=== PATIENT | male | born 1935 | race Caucasian/White ===

== ENCOUNTER 2018-06-11 07:56 | Emergency (ER) | payer MEDICARE, BC ==
--- NOTE | 2018-06-11 10:11 | ED ---
GI/ HPI - HPI Summary HPI Summary: This patient is an 83 year old M presenting to [facility] accompanied by Leslie with a chief complaint of constipation since several days ago, denying any BMs in that time. Pt endorses straining in attempts to pass, and denies sx similar to this level of severity in past, denies abd pain, vomiting, fever, recent surgery. Pt took painkillers 6 weeks ago s/p hand surgery. Pt has tried exlax, miralax, prune juice (yesterday), fruit, enema, with no alleviation of sx. - History of Current Complaint Chief Complaint: EDGeneral Time Seen by Provider: 06/11/18 08:11 Stated Complaint: CONSTIPATION Hx Obtained From: Patient Onset/Duration: Started Days Ago Timing: Constant Severity: Moderate Current Severity: Moderate Pain Intensity: 0 Location of Pain: None Associated Signs and Symptoms: Positive: Constipation. Negative: Hematemesis, Nausea, Vomiting, Diarrhea, Abdominal Pain Aggravating Factor(s): Nothing Alleviating Factor(s): Nothing - Allergy/Home Medications Allergies/Adverse Reactions: Allergies Allergy/AdvReac Type Severity Reaction Status Date / Time No Known Allergies Allergy Verified 06/11/18 08:04 Home Medications: Home Medications Allopurinol TAB* [Zyloprim 100 MG TAB*] 200 mg PO DAILY 06/11/18 [History Confirmed 06/11/18] Ascorbic Acid TAB* [Vitamin C TAB*] 500 mg PO DAILY 06/11/18 [History Confirmed 06/11/18] Bisacodyl EC TAB* [Dulcolax EC TAB*] 5 mg PO DAILY PRN 06/11/18 [History Confirmed 06/11/18] Indomethacin CAP* [Indocin CAP*] 25 mg PO QID PRN 06/11/18 [History Confirmed ] L.acidoph,Paracasei, B.lactis [Probiotic] 1 each PO DAILY 06/11/18 [History Confirmed 06/11/18] Multivitamins/Minerals TAB* [Theragran/minerals TAB*] 1 tab PO DAILY 06/11/18 [ History Confirmed 06/11/18] Ranitidine TAB (NF) [Zantac TAB (NF)] 150 mg PO BID 06/11/18 [History Confirmed 06/11/18] guaiFENesin ER TAB [Mucinex*] 600 mg PO BID PRN 06/11/18 [History Confirmed 10/19] PMH/Surg Hx/FS Hx/Imm Hx GI History: Reports: Other GI Disorders - constipation, impaction Sensory History: Reports: Hx Contacts or Glasses Opthamlomology History: Reports: Hx Contacts or Glasses EENT History: Denies: Hx Deafness Infectious Disease History: No Infectious Disease History: Denies: Traveled Outside the [place] in Last 30 Days - Social History Occupation: Retired Lives: With Family - Alcohol Use: Rare Substance Use Type: Reports: None Smoking Status (MU): Never Smoked Tobacco Review of Systems Negative: Fever, Chills Negative: Erythema Negative: Sore Throat Negative: Chest Pain Negative: Shortness Of Breath, Cough Positive: Other - Constipation. Negative: Abdominal Pain, Vomiting, Nausea Negative: dysuria, hematuria Negative: Myalgia, Edema Negative: Rash Neurological: Other - NEGATIVE: dizziness All Other Systems Reviewed And Are Negative: Yes Physical Exam - Summary Physical Exam Summary: Constitutional: Well-developed, Well-nourished, Alert. (-) Distressed Skin: Warm, Dry HENT: Normocephalic; Atraumatic Eyes: Conjunctiva normal Neck: Musculoskeletal ROM normal neck. (-) JVD, (-) Stridor, (-) Tracheal deviation Cardio: Rhythm regular, rate normal, Heart sounds normal; Intact distal pulses; The pedal pulses are 2+ and symmetric. Radial pulses are 2+ and symmetric. (-) Murmur Pulmonary/Chest wall: Effort normal. (-) Respiratory distress, (-) Wheezes, (-) Rales Abd: Soft, (-), epigastric tenderness, (-) Distension, (-) Guarding, (-) Rebound Musculoskeletal: (-) Edema Lymph: (-) Cervical adenopathy Neuro: Alert, Oriented x3 Psych: Mood and affect Normal Rectal: fecal impaction present Triage Information Reviewed: Yes Vital Signs On Initial Exam: Initial Vitals Temp Pulse Resp BP Pulse Ox 97.9 F 76 16 154/79 96 06/11/18 08:01 06/11/18 08:01 06/11/18 08:01 06/11/18 08:01 06/11/18 08:01 Vital Signs Reviewed: Yes Diagnostics - Vital Signs Vital Signs Temp Pulse Resp BP Pulse Ox 06/11/18 08:01 97.9 F 76 16 154/79 96 - Laboratory Lab Statement: Any lab studies that have been ordered have been reviewed, and results considered in the medical decision making process. GIGU Course/Dx - Course Course Of Treatment: Fecal disimpaction. - Diagnoses Provider Diagnoses: Fecal impaction, Constipation Discharge - Sign-Out/Discharge Documenting (check all that apply): Patient Departure - discharge - Discharge Plan Condition: Stable Disposition: HOME Patient Education Materials: Fecal Impaction (ED), Constipation (ED) Referrals: Kristian Woods MD [Primary Care Provider] - Additional Instructions: Can take over the counter laxitives and increase fluid intake, if taking prune juice should use a full cup. Can also resume using an enema today. RETURN TO EMERGENCY DEPARTMENT FOR ANY NEW OR CHANGING SYMPTOMS. - Billing Disposition and Condition Condition: STABLE Disposition: Home Procedure Note GI/ - Disimpaction Manual Disimpation: Yes Impaction Removed: Yes
[2018-06-11 12:09] VITALS: BP 160/88
== END 2018-06-11 12:03 | disposition home or self-care (01) ==
LOC: ED 07:56
DX: K56.41 Fecal impaction (principal)
CPT/HCPCS: 96360; 99282; 99284

== ENCOUNTER 2019-05-14 07:54 | Emergency (ER) | payer MEDICARE, BC ==
[2019-05-14 09:25] VITALS: BP 169/76
--- NOTE | 2019-05-14 11:09 | ED ---
Abdominal Pain/Male - HPI Summary HPI Summary: Patient is an 83-year-old male who presents emergency department for constipation times one week. Patient states he is a history of chronic constipation and has been taking Dulcolax tablets. Patient states that about a week since he has had a normal bowel movement. He does note having a small bowel movement yesterday after using a suppository. Patient denies abdominal pain, vomiting, fever, chest pain, shortness of breath. Denies hx of bowel obstructions. Symptoms are mild in severity. No current modifying factors. Patient states he was cleared by GI and does not any further colonoscopies. Pt. notes he was seen in ER about a year ago and was disimpacted. - History of Current Complaint Chief Complaint: EDConstipation Stated Complaint: "CONSTIPATION" PER PT Time Seen by Provider: 05/14/19 08:06 Hx Obtained From: Patient Pain Intensity: 0 Pain Scale Used: 0-10 Numeric - Allergies/Home Medications Allergies/Adverse Reactions: Allergies Allergy/AdvReac Type Severity Reaction Status Date / Time No Known Allergies Allergy Verified 05/14/19 07:59 PMH/Surg Hx/FS Hx/Imm Hx Previously Healthy: Yes GI History: Reports: Other GI Disorders - constipation, impaction Sensory History: Reports: Hx Contacts or Glasses Denies: Hx Deafness Opthamlomology History: Reports: Hx Contacts or Glasses Infectious Disease History: No Infectious Disease History: Denies: Traveled Outside the [place] in Last 30 Days - Family History Known Family History: Positive: Non-Contributory - Social History Occupation: Retired Lives: With Family Alcohol Use: Rare Substance Use Type: Reports: None Smoking Status (MU): Former Smoker Review of Systems Constitutional: Negative Negative: Fever, Chills Cardiovascular: Negative Respiratory: Negative Positive: Other - constipation. Negative: Abdominal Pain, Vomiting, Diarrhea All Other Systems Reviewed And Are Negative: Yes Physical Exam Triage Information Reviewed: Yes Vital Signs On Initial Exam: Initial Vitals Temp Pulse Resp BP Pulse Ox 98.3 F 73 18 179/72 98 05/14/19 07:56 05/14/19 07:56 05/14/19 07:56 05/14/19 07:56 05/14/19 07:56 Vital Signs Reviewed: Yes Appearance: Positive: Well-Appearing - Pt. sitting on bed in NAD. present. Skin: Positive: Warm, Dry Head/Face: Positive: Normal Head/Face Inspection Eyes: Positive: Normal, EOMI, YAIR Neck: Positive: Nontender Respiratory/Lung Sounds: Positive: Clear to Auscultation, Breath Sounds Present Cardiovascular: Positive: Normal, RRR Abdomen Description: Positive: Other: - Abd. is soft and nontender throughout. Musculoskeletal: Positive: Normal, Strength/ROM Intact Neurological: Positive: Normal, CN Intact II-III Psychiatric: Positive: Affect/Mood Appropriate Diagnostics - Vital Signs Vital Signs Temp Pulse Resp BP Pulse Ox 05/14/19 09:24 98.2 F 69 16 169/76 97 05/14/19 07:56 98.3 F 73 18 179/72 98 - Laboratory Lab Statement: Any lab studies that have been ordered have been reviewed, and results considered in the medical decision making process. Abdominal Pain Male Course/Dx - Course Course Of Treatment: Patient presenting complaining of constipation. His afebrile with stable vital signs. Patient has benign abdominal exam. X-ray was ordered for further evaluation and rule out obstruction. Before x-ray was performed patient went to the restroom and had a large movement. Patient states he is feeling much better now. Abdomen is soft and nontender. X-ray canceled. Patient comfortable with DC home. Follow-up with PCP and return to the ER symptoms change or worsen. Patient and understand and agree with plan. - Diagnoses Differential Diagnosis/HQI/PQRI: Bowel Obstruction, Constipation Provider Diagnoses: Constipation Discharge - Sign-Out/Discharge Documenting (check all that apply): Patient Departure Patient Received Moderate/Deep Sedation with Procedure: No - Discharge Plan Condition: Improved Disposition: HOME Patient Education Materials: Constipation (ED), High Fiber Diet (ED) Referrals: Kristian Woods MD [Primary Care Provider] - Additional Instructions: Follow up with PCP Increase fluids and fiber in diet Avoid dairy products Can try over the counter probiotic Can continue stool softeners and laxatives as needed Return to ER if symptoms change or worsen - Billing Disposition and Condition Condition: IMPROVED Disposition: Home - Attestation Statements Provider Attestation: pt seen by midlevel provider independently, based on their assessment, it was not necessary to present the case to me but I was available for consultation. I did not form a physician-patient relationship with the patient. The chart however, has been reviewed.
== END 2019-05-14 09:24 | disposition home or self-care (01) ==
LOC: ED 07:54
DX: K59.00 Constipation, unspecified (principal); Z87.891 Personal history of nicotine dependence
CPT/HCPCS: 99282

== ENCOUNTER 2019-09-24 18:24 | Inpatient (IN) | payer MEDICARE, BC ==
--- NOTE | 2019-09-24 18:52 | ED ---
Lower Extremity - HPI Summary HPI Summary: This pt is an 84 y/o male presenting to [facility] c/o right lower extremity swelling and redness. Pt reports he had a blocked sweat gland removed by Dr. Maher, aluminum molding machine operator, about [address] Maher placed patient on Keflex on because the wound was draining. Per , wound has been draining a bit but nothing more than usual today. Today noticed pt's right lower extremity was red and swollen. Pt denies any right lower extremity pain. Pt notes he has numbness from neuropathy and this is unchanged today. Denies fever , chills, nausea, vomiting. Pt called his aluminum molding machine operator and was advised to come to the ED. Pt denies any PMHx. reports pt had flu shots a few days ago and the next day pt had chills. Pt denies chills since then. Medications reviewed. Allergies noted. - History of Current Complaint Chief Complaint: EDRashSkinAbscess Stated Complaint: RIGHT FOOT INFECTION PER PT Time Seen by Provider: 09/24/19 18:34 Hx Obtained From: Patient Onset of Pain: Days Onset/Duration: Days Severity Currently: None Pain Intensity: 0 Pain Scale Used: 0-10 Numeric Timing: Lasting Days Location: Is Discrete @ - right lower extremity Associated Signs And Symptoms: Positive: Swelling, Redness. Negative: Fever Aggravating Factor(s): Nothing Alleviating Factor(s): Nothing Able to Bear Weight: Yes - Allergies/Home Medications Allergies/Adverse Reactions: Allergies Allergy/AdvReac Type Severity Reaction Status Date / Time No Known Allergies Allergy Verified 09/24/19 18:28 Home Medications: Home Medications Cephalexin CAP* [Keflex CAP*] 500 mg PO QID 09/24/19 [History Confirmed 09/24/19 ] Pantoprazole TAB * [Protonix TAB*] 40 mg PO DAILY 09/24/19 [History Confirmed ] PMH/Surg Hx/FS Hx/Imm Hx Endocrine/Hematology History: Denies: Hx Diabetes GI History: Reports: Other GI Disorders - constipation, impaction Sensory History: Reports: Hx Contacts or Glasses Denies: Hx Deafness Opthamlomology History: Reports: Hx Contacts or Glasses Infectious Disease History: No Infectious Disease History: Denies: Traveled Outside the [place] in Last 30 Days - Family History Family History: Brothers with prostate CA. - Social History Alcohol Use: Rare Substance Use Type: Reports: None Smoking Status (MU): Former Smoker Review of Systems Negative: Fever, Chills Negative: Vomiting, Nausea Skin: Other - POSITIVE: right lower extremity swelling and redness All Other Systems Reviewed And Are Negative: Yes Physical Exam - Summary Physical Exam Summary: Constitutional: Well-developed, Well-nourished, Alert. (-) Distressed Skin: Warm, Dry HENT: Normocephalic; Atraumatic Eyes: Conjunctiva normal Neck: Musculoskeletal ROM normal neck. (-) JVD, (-) Stridor, (-) Tracheal deviation Cardio: Rhythm regular, rate normal, Heart sounds normal; Intact distal pulses; The pedal pulses are 2+ and symmetric. Radial pulses are 2+ and symmetric. (-) Murmur Pulmonary/Chest wall: Effort normal. (-) Respiratory distress, (-) Wheezes, (-) Rales Abd: Soft, (-) tenderness, (-) Distension, (-) Guarding, (-) Rebound Musculoskeletal: Right lower extremity is swollen with 1+ pitting edema. The dorsal aspect of the foot with erythema, not warm or tender. Healing wound on plantar aspect of foot with no purulence expressed. Lymph: (-) Cervical adenopathy Neuro: Alert, Oriented x3 Psych: Mood and affect Normal Triage Information Reviewed: Yes Vital Signs On Initial Exam: Initial Vitals Temp Pulse Resp BP Pulse Ox 98.5 F 76 20 197/105 99 09/24/19 18:26 09/24/19 18:26 09/24/19 18:26 09/24/19 18:26 09/24/19 18:26 Vital Signs Reviewed: Yes Procedures - Sedation Patient Received Moderate/Deep Sedation with Procedure: No Diagnostics - Vital Signs Vital Signs Temp Pulse Resp BP Pulse Ox 09/24/19 18:26 98.5 F 76 20 197/105 99 - Laboratory Result Diagrams: 09/25/19 06:13 09/25/19 06:14 Lab Statement: Any lab studies that have been ordered have been reviewed, and results considered in the medical decision making process. - Radiology Right foot XR Radiology Interpretation Completed By: ED Physician Summary of Radiographic Findings: Soft tissue swelling with no obvious bony destruction. - Ultrasound No standard instances Ultrasound Interpretation Completed By: Radiologist Summary of Ultrasound Findings: US of right lower extremity IMPRESSION: No evidence of right lower extremity DVT. Dr. Rutherford has reviewed this report. Lower Extremity Course/Dx - Course Course Of Treatment: Patient is here with worsening infection and swelling of his right lower extremity. Patient underwent a surgery by a aluminum molding machine operator roughly 4 weeks ago. Patient started having purulent discharge from his wound on Saturday and was started on Keflex. Yesterday, patient's leg became swollen. Patient does have erythema on his foot but is nontender and blanching. I do not believe this represents cellulitis. Patient had a negative ultrasound of his right lower extremity. Patient was admitted for possible osteomyelitis - Diagnoses Provider Diagnoses: Swelling of right lower extremity, Osteomyelitis - Physician Notifications Discussed Care Of Patient With: Rubén Jang - hospitalist Time Discussed With Above Provider: 21:50 Instructed by Provider To: Admit As Inpatient Discharge ED - Sign-Out/Discharge Documenting (check all that apply): Patient Departure - Admit to [facility] - Discharge Plan Condition: Stable Disposition: ADMITTED TO [facility] - Billing Disposition and Condition Condition: STABLE Disposition: Admitted to [facility] - Attestation Statements Document Initiated by Roseibe: Yes Documenting Scribe: Tiera Kirby Provider For Whom Scribe is Documenting (Include Credential): Joey Rutherford MD Scribe Attestation: Tiera Hurd, scribed for Joey Rutherford MD on 09/25/19 at 1010. Scribe Documentation Reviewed: Yes Provider Attestation: The documentation as recorded by the Tiera desai accurately reflects the service I personally performed and the decisions made by me, Joey Rutherford MD Status of Scribe Document: Viewed
--- OUTSIDE RECORDS SUMMARY | 2019-09-24 19:13 | XMS REPORT | Summary of Care ---
:1935 Author Organization [facility] Address 1 [facility] [place] [address] Care Team Providers Name Role Phone Kristian Woods Primary Care Provider Reason for Visit Reason Comments Follow Up RTH Encounter Details Date Type Department Care Team Description 09/18/2019 Office Visit [facility] - Hollis King, H/O total hip Chantelle CALIXTO arthroplasty, right [address] 1 [facility] (Primary Dx) [address] [place] [address] [place] [address] Allergies Active Allergy Reactions Severity Noted Date Comments Dust Mites Respiratory Reaction 01/06/2009 documented as of this encounter (statuses as of 09/18/2019) Medications Medication Sig Dispensed Refills Start Date End Date Status metroNIDAZOLE 1 Each by Topical 45 g 2 06/19/2018 Active (METROCREAM) 0.75 % route TWICE Apply externally DAILY. Apply CreamIndications: twice daily to Rosacea face. Additional information Patient taking differently: 1 Each Topical DAILY, Apply twice daily to face. , Reported on 07/23/2019 9:20 AM Multiple Vitamins-Minerals Take 1 Tab by mouth 0 06/11/2018 Active (MULTIVITAMIN ADULT PO) DAILY. ascorbic acid (VITAMIN C) 500 MG Take 500 mg by mouth 0 06/11/2018 Active Oral Tab DAILY. sennosides-docusate sodium Take 1 Tab by mouth TWO 30 Tab 0 08/18/2018 Active (SENOKOT-S, SENNA S) 8.6-50 MG TIMES DAILY NEEDED Oral Tab (constipation). Amoxicillin 500 MG Oral Tab Take 4 Tabs by mouth 4 Tab 4 10/30/2018 Active NEEDED (Please take four tablets one hour prior to dental work.). pantoprazole (PROTONIX) 40 MG Take 1 Tab by mouth 90 Tab 3 12/25/2018 Active Oral Tab ECIndications: DAILY. Gastroesophageal reflux disease without esophagitis allopurinol (ZYLOPRIM) 100 MG Take by mouth DAILY. 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 chronic kidney disease 07/25/2018 Primary osteoarthritis of right hip 07/08/2018 Overview: Added automatically from request for surgery [id number] Pre-diabetes 04/01/2018 Subclinical hypothyroidism 04/01/2018 Pseudophakia of right eye 03/06/2018 Combined forms of age-related cataract of left eye 03/06/2018 CMC arthritis 02/26/2018 Overview: Added automatically from request for surgery [id number] Peripheral polyneuropathy 11/15/2017 Low back pain 05/22/2017 Status post total replacement of left hip 05/17/2017 Gastroesophageal reflux disease without esophagitis 10/12/2015 S/P total hip arthroplasty 06/02/2015 Osteoarthrosis, unspecified whether generalized or localized, pelvic 2014 region and thigh Status post total right knee replacement 03/11/2014 Overview: LTKA 3-24-14 Osteoarthritis of left knee 02/05/2014 Acute pain of right knee 12/24/2013 History of total shoulder replacement 02/04/2013 Overview: Left 1.22.13 Dr Ramsay Shoulder arthritis 11/04/2012 BMI 28.0-28.9,adult 2011 Sensorineural hearing loss, bilateral 12/31/2008 Prostate cancer 10/01/2008 Overview: S/p radical prostatectomy [facility] 2004. Mixed hyperlipidemia 01/23/2008 Overview: TC 239 2004 TC 210 2008 DJD (degenerative joint disease) 01/23/2008 Overview: S/p right total knee replacement 2001 Personal history of colonic polyps 01/23/2008 Overview: Colonoscopy 2003-hyperplastic polyp. Colonoscopy negative 10/10 Gouty arthritis of toe 01/23/2008 Overview: Right 1st MTP joint attacks Last attack 2007. Essential hypertension 01/23/2008 Surgery, elective 12/02/2003 Overview: Dr Silva documented as of this encounter (statuses as of 09/18/2019) Resolved Problems Problem Noted Date Resolved Date Seasonal allergies 01/23/2008 09/09/2009 documented as of this encounter (statuses as of 09/18/2019) Immunizations Name Administration Dates Next Due Celestone Soluspan(12mg) 04/05/2011 Depo Medrol (80mg) 03/03/2015 Influenza (IM) Preservative Free 09/17/2018, 10/24/2017, 09/24/2016, 09/11/2012, 09/14/2009, 09/16/2008 Influenza Vaccine High Dose 09/01/2018, 10/01/2015 Influenza Vaccine Whole 09/10/2007, 09/28/2004 PNEUMOCOCCAL POLYSACCHARIDE VACCINE 11/12/2002, 11/12/2002 Pneumococcal Conjugate(13 Valent) 01/24/2015 TDAP Vaccine 10/04/2009 ZOSTER (ZOSTAVAX) VACCINE 12/24/2014 documented as of this encounter Social History Tobacco Use Types Packs/Day Years Used Date Former Smoker Cigarettes 3 12 Quit: 12/02/1967 Smokeless Tobacco: Never Used Alcohol Use Drinks/Week oz/Week Comments Yes 1-2 Standard drinks or equivalent 1.0 - 2.0 rare Sex Assigned at Date Recorded Not on file Job Start Date Occupation Industry Not on file Not on file Not on file Travel History Travel Start Travel End No recent travel history available. documented as of this encounter Last Filed Vital Signs Vital Sign Reading Time Taken Comments Blood Pressure - - Pulse - - Temperature - - Respiratory Rate 16 09/18/2019 9:42 AM EDT Oxygen Saturation - - Inhaled Oxygen Concentration - - Weight 93 kg (205 lb) 09/18/2019 9:42 AM EDT Height 182.9 cm (6') 09/18/2019 9:42 AM EDT Body Mass Index 27.8 09/18/2019 9:42 AM EDT documented in this encounter Progress Notes Hollis King MD - 09/18/2019 9:45 AM EDT PATIENT: Jono Trinidad : 1935 DATE OF SERVICE: 09/18/2019 SUBJECTIVE: Jono Trinidad is a 84-y.o. male. 1 year status post right total hip arthroplasty. Doing well, no acute issues OBJECTIVE: Resp 16 | Ht 6' (1.829 m) | Wt 205 lb (93 kg) | BMI 27.80 kg/m Incision well healed. No peritroch tenderness. Range of motion Flexion 0-90, ir -20, er-30, abd-40, add-15. Limb lengths grossly equal. Trendelenburg negative. Distal ext neuro intact. X-rays show well aligned cementless total hip arthroplasty , no evidence of loosening ASSESSMENT: ICD-9-CM ICD-10-CM 1. H/O total hip arthroplasty, right V43.64 Z96.641 XR HIP 3 VIEWS UNILAT W/ PELVIS RIGHT PLAN: Activity as tolerated Follow up in 1 year with xrays Author: Hollis King MD 09/18/2019 09:49 Portions of this note were made with voice recognition software documented in this encounter Plan of Treatment Date Type Specialty Care Team Description 09/24/2019 Lab Internal Medicine 10/01/2019 Office Visit Internal Medicine Kristian Woods MD [address] [place] [id number] [phone] 12/16/2019 Office Visit Orthopedics Manuel Ramsay MD [address] [place] [address] 01/01/2020 Office Visit Orthopedics Hollis King MD [address] [place] [address] [phone] 09/23/2020 Office Visit Orthopedics Hollis King MD [address] [place] [address] Name Type Priority Associated Diagnoses Date/Time XR HIP 3 VIEWS UNILAT Imaging Routine H/O total hip 09/18/2019 9:40 AM EDT W/PELVIS RIGHT arthroplasty, right Name Type Priority Associated Diagnoses Order Schedule XR HIP 3 VIEWS UNILAT Imaging Routine H/O total hip Expected: 09/17/2019, W/PELVIS RIGHT arthroplasty, right Expires: 09/17/2020 Health Maintenance Due Date Last Done Comments DEPRESSION SCREENING 1948 HIV SCREENING 1951 ZOSTER IMMUNIZATION SERIES 02/18/2015 12/24/2014 (2 of 3) MEDICARE ANNUAL WELLNESS 02/06/2018 02/06/2017, 02/06/2017, VISIT 12/29/2015, Additional history exists INFLUENZA VACCINE (#1) 2019 09/17/2018, 09/01/2018, 10/24/2017, Additional history exists DIABETES SCREENING 08/18/2019 08/18/2018, 08/17/2018, 08/16/2018, Additional history exists FALL RISK ASSESSMENT 12/22/2019 12/22/2018, 12/22/2018 PNEUMOCOCCAL 65+YRS Completed 01/24/2015, 11/12/2002 HPV IMMUNIZATION SERIES Aged Out No longer eligible based on patient's age to complete this topic MENINGOCOCCAL VACCINE IMM Aged Out No longer eligible based on patient's age to complete this topic documented as of this encounter Goals Goal Patient Goal Associated Recent Patient-Stated? Author Type Problems Progress Blood Pressure Blood Pressure 142/78 No Chuck, < 150/90 (07/23/2019 Kristian Walker, 9:14 AM EDT) Note: This is an individualized treatment (blood pressure) goal for Jono Trinidad: Displayed above (on the left) is your goal for blood pressure control. Your most recent blood pressure is also shown above, on the right. You should try to achieve blood pressures that are lower than your goal listed above (on the left). Take all prescribed medications as Self-management Kristian Perez MD directed Note: This is an individualized self-management goal for Jono Trinidad: Please take all prescribed medications as directed. 1. Do not skip doses. If you cannot afford your medications, talk with your doctor. 2. Use a pill reminder system such as a pill box if needed. Your pharmacist can help you with this. 3. Contact your Pharmacy 5 days before your medication runs out. If you cannot take your medications for any reasons, talk with your doctor. 4. Please bring all of your medication bottles and inhalers (or a list of all your medications/inhalers) with you to every visit. Potential barriers to meeting all of your care plan goals will continue to be addressed on an ongoing basis. documented as of this encounter Implants Implanted Type Area Activities Assistant Device Shelf Model / Identifier Expiration Serial / Lot Date Bone Cement, 40gm Full Dose - [id number] Left: DEPUY [id number] / Implanted: Qty: 1 on 12/23/2012 at [facility] Shoulder / [id number] Glenoid, Crosslink [place] Pg 52 - [id number] Left: DEPUY [id number] / Implanted: Qty: 1 on 12/23/2012 at [facility] Shoulder / [id number] Stem, Global Advantage 12mm - [id number] Left: DEPUY [id number] / Implanted: Qty: 1 on 12/23/2012 at [facility] Shoulder / [id number] Smart Set Bone Cement W/ Gentimy - [id number] Left: Knee DEPUY 2014 [id number] / Implanted: Qty: 1 on 02/22/2014 by Hollis King MD at [facility] / [id number] Smart Set Cement - [id number] Left: Knee DEPUY 03/01/2015 [id number] / Implanted: Qty: 1 on 02/22/2014 by Hollis King MD at [facility] / [id number] Lps-Flex Option Femoral G Left - [id number] Left: Knee OMID KAORN / Implanted: Qty: 1 on 02/22/2014 by Hollis King MD at [facility] ASSOC / [id number] Tibial Plate Size 7 - [id number] Left: Knee OMID KARON 10/01/2023 / Implanted: Qty: 1 on 02/22/2014 by Hollis King MD at [facility] / [id number] Patella, 38mm Nexgen - [id number] Left: Knee OMID KARON 03/31/2021 / Implanted: Qty: 1 on 02/22/2014 by Hollis King MD at [facility] / [id number] Art Surface 10mm Blue - [id number] Left: Knee OMID KARON 01/29/2021 / Implanted: Qty: 1 on 02/22/2014 by Hollis King MD at [facility] / [id number] Regenerex/Ringloc Ltd Hole Cup Size 58 - [id number] Left: Hip BIOMET 12/2024 [id number] / Implanted: Qty: 1 on 05/09/2015 by Hollis King MD at [facility] / [id number] Neutral Arcomxl Liner - 36g - [id number] Left: Hip BIOMET 08/02/2019 [id number] / Implanted: Qty: 1 on 05/09/2015 by Hollis King MD at [facility] / [id number] Taperloc Complete Fem Stem - So Sz 15 - [id number] Left: Hip BIOMET 09/01 [id number] / Implanted: Qty: 1 on 05/09/2015 by Hollis King MD at [facility] / [id number] 36mm Femoral Head Size Std - [id number] Left: Hip BIOMET 01/31/2025 11- [id number] / Implanted: Qty: 1 on 05/09/2015 by Hollis King MD at [facility] / [id number] Iol, S168ulx 21.0 Diopter - [id number] Right: Eye STORZ I842VIT-68.0D / Implanted: Qty: 1 on 03/05/2018 by Rodriguez Kumar MD at [facility] [id number] / Iol, D518xmg 20.5 Diopter - [id number] Left: Eye STORZ H682HTO-72.5D / Implanted: Qty: 1 on 03/26/2018 by Rodriguez Kumra MD at [facility] [id number] / Micro Corkscrew Ti [place] - [id number] Right: Hand ARTHREX 10/01/2022 AR [id number] / Implanted: Qty: 1 on 05/02/2018 by Marina Velez MD at [facility] / [id number] Regenerex/Ringloc Ltd Hole Cup Size 60 - [id number] Right: Hip OMID USA[employer] INC 06/16/2028 [id number] / Implanted: Qty: 1 on 08/11/2018 by Hollis King MD at [facility] / [id number] Acetabular Liner Neutral Right: Hip BIOMET 06/01/2023 [id number] / Implanted: Qty: 1 on 08/11/2018 by Hollis King MD at [facility] / [id number] Taperloc Complete Fem Stem - So Sz 13 - [id number] Right: Hip OMID [employer] 12/20/2027 [id number] / Implanted: Qty: 1 on 08/11/2018 by Hollis King MD at [facility] / [id number] Ceramic Modular Head 36 +3 - [id number] Right: Hip OMID [employer] 01/29 [id number] / Implanted: Qty: 1 on 08/11/2018 by Hollis King MD at [facility] / [id number] documented as of this encounter Results Not on filedocumented in this encounter Visit Diagnoses Diagnosis H/O total hip arthroplasty, right - Primary documented in this encounter documented as of this encounter Advance Directives Type Date Recorded Patient Extras Casting Director Explanation Advance Directives 12/30/2012 9:27 AM Health Care Proxy"
[2019-09-24 19:19] LABS: ABS Eosinophils 0.3 10^3/ul (0-0.6); ABS Lymphocytes 0.7 10^3/ul (1.0-4.8); ABS Monocytes 0.9 10^3/ul (0-0.8); ABS Neutrophils 4.8 10^3/ul (1.5-7.7); Eosinophil % 4.1 %; Hematocrit 31 % (42-52); Hemoglobin 10.9 g/dL (14.0-18.0); Lymphocyte % 11.1 %; Mean Corpuscular HGB Conc 35 g/dL (31-36); Mean Corpuscular Hemoglobin 33 pg (27-31); Mean Corpuscular Volume 95 fL (80-94); Mean Platelet Volume 7.2 fL (7.4-10.4); Platelet Count 193 10^3/uL (150-450); Red Blood Count 3.31 10^6 /uL (4.18-5.48); Red Cell Distribution Width 13 % (10-15); White Blood Count 6.7 10^3/uL (3.5-10.8)
[2019-09-24 19:37] LABS: Albumin 3.7 g/dL (3.2-5.2); Albumin/Globulin Ratio 1.2 (1-3); BUN/Creatinine Ratio 17.6 (8-20); C Reactive Protein 111.1 mg/L (<8.01); Calcium 8.5 mg/dL (8.6-10.3); EGFR African American 40.4 (>60); EGFR Non-African American 33.4 (>60); Potassium 4.1 mmol/L (3.5-5.0); Total Bilirubin 0.5 mg/dL (0.2-1.0); Total Protein 6.7 g/dL (6.4-8.9)
[2019-09-24 22:24] LABS: Erythrocyte Sed Rate 74 mm/Hr (0-19)
[2019-09-25] MEDS ORDERED: Vancomycin(*) 1,000 MG in NS 0.9% 250 ML* 250 ML IVPB ONE (00:27)
[2019-09-25] MEDS ORDERED: Piperacillin/Tazobac ADVAN(*) 3.375 GM in NS 0.9% 100 ML* 100 ML IVPB ONE (00:28)
[2019-09-25] MEDS ORDERED: Bisacodyl EC TAB* 5 MG PO PRN (00:59)
[2019-09-25] MEDS ORDERED: Zosyn per Pharmacy* NOTE FOLLOW UP SCH (01:00)
[2019-09-25] MEDS ORDERED: Vancomycin per Pharmacy* NOTE FOLLOW UP SCH (01:00)
[2019-09-25] MEDS ORDERED: Vancomycin(*) 1,500 MG in NS 0.9% 250 ML* 250 ML IVPB ONE (01:00)
[2019-09-25] MEDS: NS 0.9% 1000 ML** 1,000 ML IV SCH (01:27)
[2019-09-25] MEDS: Magnesium Hydroxide LIQ* 30 ML UDC PO SCH ×2 (01:53→07:41)
--- NOTE | 2019-09-25 03:17 | HP ---
CC: Dr. Kristian Woods* ADMISSION HISTORY AND PHYSICAL: DATE OF ADMISSION: 09/25/19 PRIMARY CARE PROVIDER: Dr. Kristian Woods. CHIEF COMPLAINT: Worsening right foot swelling and some draining. HISTORY OF PRESENT ILLNESS: This is an 84-year-old gentleman with past medical history of arthritis; gout; prostate cancer; chronic kidney disease, stage 3; gastroesophageal reflux disease; underwent a surgery to resect what he calls as a sweat gland of the right foot by Dr. Maher, who is his marketing associate. Since then , he has been having poorly healing wound, was started on Keflex on Saturday, but the foot became more red and the leg itself was more swollen, so he was recommended to go to the ER for IV antibiotics and to rule out any DVT. He was complaining of pain on his right foot, but otherwise no chest pain; no shortness of breath; no abdominal pain, nausea, vomiting, or diarrhea; no fever whatsoever. The , who is at the bedside, stated that she did check his temperature and did not find any fever. He is being admitted for failed outpatient antibiotics. PAST MEDICAL HISTORY: As mentioned: 1. Arthritis. 2. Gout. 3. Prostate cancer, status post prostatectomy. 4. CKD, stage 3. 5. Gastroesophageal reflux disease. PAST SURGICAL HISTORY: He has had bilateral pelvic lymph node dissection along with radical retropubic prostatectomy in 2006. He has had right total knee replacement in 2002 followed by a left total knee replacement. He has also had bilateral hip replacements and a left shoulder replacement and bilateral cataract surgeries. HOME MEDICATIONS: The patient's only medication at this point is Keflex that he was given 500 mg 4 times a day. He does take some multivitamins, ascorbic acid, bisacodyl, probiotic, and milk of magnesia on a daily basis along with Protonix 40 mg daily. ALLERGIES: No known drug allergies. FAMILY HISTORY: Noncontributory at his age of 84. SOCIAL HISTORY: Denies any alcohol or drug use. He is an ex-smoker, quit in 1967, prior to that had 10-pack years of smoking. He is a full code and his , Ping Hoang, who was at the bedside, is his surrogate decision maker. REVIEW OF SYSTEMS: A 14-point review of systems did not reveal any information other than the ones in the HPI. PHYSICAL EXAMINATION GENERAL: The patient is awake, alert, and oriented x3, does not appear to be in any acute distress. VITAL SIGNS: In the ER, temperature was 98.5; initial BP was 197/105, but subsequent BP was noted to be improved at 162/90; saturating 99% on room air; heart rate 76; respiration rate 20. HEAD AND NECK: Atraumatic and normocephalic. Bilateral pupils are reactive. Oral mucosa is moist. NECK: Supple. No jugular venous distention. LUNGS: Clear to auscultation bilaterally. No wheezing, no rhonchi or rales. HEART: S1, S2. Regular rate and rhythm. ABDOMEN: Soft, nontender, nondistended. EXTREMITIES: The patient had swelling of the right foot with erythema and warmth on the foot which was radiating just past the ankle joint up to mid bond region. There was an open wound which was minimally draining purulent material on expression, he did have tenderness of the joint of the ankle and foot. DIAGNOSTIC STUDIES/LAB DATA: CBC was showing mild anemia with hemoglobin of 10.9, hematocrit 31, platelets count was normal and white count was also normal. Coagulation profile shows elevated D-dimer at 322. Comprehensive metabolic panel shows hyponatremia with sodium of 130, BUN elevated at 31, creatinine 1.93, GFR was noted to be 33, random glucose was elevated at 142. C- reactive protein elevated at 111. ESR was elevated at 74. X-ray of the foot showed swelling and some thinning on the lateral aspect of the foot. Official read by Radiology is still pending to see if there is any osteomyelitis there. Venous Doppler was negative for any DVT on the right lower extremity. IMPRESSION: This is an 84-year-old gentleman with a recent surgical procedure on the right foot who comes in with worsening wound and cellulitis which failed outpatient Keflex therapy. ASSESSMENT AND PLAN: 1. Right foot wound, failed outpatient therapy with contiguous cellulitis, rule out any osteomyelitis. We will order an MRI of the right foot as a routine order. In the meantime if the foot x-ray itself suggests osteomyelitis, we could cancel the MRI. For now, we will start the patient on broad-spectrum antibiotics given recent surgical resection and follow up cultures. 2. History of gastroesophageal reflux disease. We will restart his Protonix. 3. History of chronic kidney disease, stage 3. Currently stable. 4. Elevated blood pressure. Unclear if this is white coat hypertension or not. We will start the patient on a small dose of amlodipine 5 mg on a daily basis. If his blood pressure improves or is too low, we could consider discontinuing this BP medication. 5. Elevated random glucose. We will check an A1c level with morning labs to see if the patient does have underlying diabetes which was undiagnosed. 6. DVT prophylaxis with subcu heparin. 7. Code status: Full code. [id number]/[facility] #: [id number] MTDD
[2019-09-25] MEDS: Heparin VIAL(*) 5000 UNITS/ML VIAL (FIVE THOUSAND) SUBCUT SCH ×3 (05:43→20:16)
[2019-09-25] MEDS ORDERED: ZOSYN 3.375 GM Q8H per EXTENDED INFUSION IVPB SCH ×2 (06:00)
[2019-09-25 06:30] LABS: ABS Eosinophils 0.5 10^3/ul (0-0.6); ABS Lymphocytes 0.8 10^3/ul (1.0-4.8); ABS Monocytes 0.9 10^3/ul (0-0.8); ABS Neutrophils 3.9 10^3/ul (1.5-7.7); Eosinophil % 7.4 %; Hematocrit 33 % (42-52); Hemoglobin 11.4 g/dL (14.0-18.0); Lymphocyte % 13.5 %; Mean Corpuscular HGB Conc 35 g/dL (31-36); Mean Corpuscular Hemoglobin 33 pg (27-31); Mean Corpuscular Volume 95 fL (80-94); Mean Platelet Volume 7.4 fL (7.4-10.4); Platelet Count 197 10^3/uL (150-450); Red Blood Count 3.47 10^6 /uL (4.18-5.48); Red Cell Distribution Width 13 % (10-15); White Blood Count 6.1 10^3/uL (3.5-10.8)
[2019-09-25 06:48] LABS: Anion Gap 8 mmol/L (2-11); BUN/Creatinine Ratio 16.5 (8-20); Blood Urea Nitrogen 30 mg/dL (6-24); CO2 Carbon Dioxide 23 mmol/L (22-32); Calcium 8.9 mg/dL (8.6-10.3); Chloride 102 mmol/L (101-111); EGFR African American 43.3 (>60); EGFR Non-African American 35.8 (>60); Glucose 104 mg/dL (70-100); Potassium 4.2 mmol/L (3.5-5.0); Sodium 133 mmol/L (135-145)
[2019-09-25] MEDS: amLODIPine TAB* 5 MG PO SCH (07:41)
[2019-09-25] MEDS: Multivitamins/Minerals TAB PO SCH (07:42)
[2019-09-25] MEDS: Ascorbic Acid TAB* 500 MG PO SCH (07:42)
[2019-09-25] MEDS: Pantoprazole TAB * 40 MG TAB PO SCH (07:42)
--- NOTE | 2019-09-25 08:48 | ED ---
Imaging and Labs Follow Up Follow Up Type: Imaging Labs/Culture Result: Dr. Boyce called Meredith Chris on 09/25/19 to make aware Imaging Result: Overnight read shows possible osteomyelitis recommend an MRI study without and with contrast or three-phase bone scan Patient Communication/Plan: Pt admitted Discussed with Dr. Root, attending physician at 8:45am Provider Diagnoses: Swelling of right lower extremity, Osteomyelitis
[2019-09-25 09:22] LABS: Folate > 20.00 ng/mL (>3.99)
[2019-09-25] MEDS: Cefepime 2 GM in Dextrose(*) 2 GM/50 ML BAG IV SCH (13:43)
--- NOTE | 2019-09-25 15:17 | PN ---
Subjective Date of Service: 09/25/19 Interval History: Patient had no fever, chills. No right foot pain. Objective Active Medications: Amlodipine Besylate (Norvasc Tab*) 5 mg PO DAILY [facility] Last Admin: 09/25/19 07:41 Dose: 5 mg Ascorbic Acid (Vitamin C Tab*) 500 mg PO DAILY [facility] Last Admin: 09/25/19 07:42 Dose: 500 mg Bisacodyl (Dulcolax Ec Tab*) 5 mg PO DAILY PRN PRN Reason: CONSTIPATION Heparin Sodium (Porcine) (Heparin Vial(*)) 5,000 units SUBCUT Q8HR [facility] Last Admin: 09/25/19 13:37 Dose: 5,000 units Sodium Chloride (Ns 0.9% 1000 Ml) 1,000 mls @ 100 mls/hr IV PER RATE [facility] Last Admin: 09/25/19 01:27 Dose: 100 mls/hr Vancomycin HCl 1,250 mg/ (Sodium Chloride) 250 mls @ 166.667 mls/hr IVPB Q24H [facility] Cefepime HCl (Maxipime 2 Gm In Dextrose Duplex (*)) 2 gm in 50 mls @ 100 mls/ hr IV Q12H [facility] Last Admin: 09/25/19 13:43 Dose: 100 mls/hr Magnesium Hydroxide (Milk Of Magnesia Liq*) 30 ml PO DAILY [facility] Last Admin: 09/25/19 07:41 Dose: 30 ml Multivitamins/Minerals (Theragran/Minerals Tab*) 1 tab PO DAILY [facility] Last Admin: 09/25/19 07:42 Dose: 1 tab Pantoprazole Sodium (Protonix Tab*) 40 mg PO DAILY [facility] Last Admin: 09/25/19 07:42 Dose: 40 mg Pharmacy Consult (Vancomycin Per Pharmacy*) 1 note FOLLOW UP .VANC PER PHARMACY [facility]; Protocol Pharmacy Profile Note (Vancomycin Trough Check) 1 note FOLLOW UP 0200 ONE Stop: 09/28/19 02:01 Vital Signs - 8 hr 09/25/19 09/25/19 09/25/19 07:15 07:47 11:11 Temperature 97.9 F 97.9 F Pulse Rate 62 62 Respiratory 20 20 16 Rate Blood Pressure 136/59 132/59 (mmHg) O2 Sat by Pulse 99 98 Oximetry Oxygen Devices in Use Now: None Exam: GENERAL: awake, alert, and oriented x3, NAD HEAD AND NECK: Atraumatic and normocephalic. Bilateral pupils are reactive. Oral mucosa is moist. NECK: Supple. No jugular venous distention. LUNGS: Clear to auscultation bilaterally. No wheezing, no rhonchi or rales. HEART: S1, S2. Regular rate and rhythm. ABDOMEN: Soft, nontender, nondistended. EXTREMITIES: swelling of the right foot with erythema and warmth on the foot up to mid bond region. There was an open wound which was minimally draining purulent material on expression. left knee post TKA changes. Result Diagrams: 09/25/19 06:13 09/25/19 06:14 Assess/Plan/Problems-Billing Assessment: 84 y/o male with history of arthritis, prostate cancer, CKD stage 3, presented with worsening right foot swelling with drainage. - Patient Problems (1) Cellulitis of right foot Current Visit: Yes Status: Acute Code(s): L03.115 - CELLULITIS OF RIGHT LOWER LIMB SNOMED Code(s): 940647247 Comment: - right foot cellulitis, concerning for underlying right foot osteomyelitis - noted X ray possible osteomyelitis changes, suggested MRI - patient was started iv Zosyn and vancomycin in ED - wound cs done last night, no bacteria seen - wound cs and wound dressing change was done today - spoke to ID/wound nurse ANESTHETIST Yeni, suggested to change to cefepime+ vancomycin for now, and possible referral next week (2) DVT prophylaxis Current Visit: Yes Status: Acute Code(s): Z29.9 - ENCOUNTER FOR PROPHYLACTIC MEASURES, UNSPECIFIED SNOMED Code(s): 852500310 Comment: sc heparin Status and Disposition: Inpatient Medicine. Attestation Documenting Resident: Cheryl Conway Supervising Physician: Tiera Root Attestation: This service has been performed in part by a resident under the direction of a teaching physician.I, Tiera Root, performed the service, or was physically present during the critical, or nicole portions of the service, furnished by the resident. I participated in the management of the patient.
[2019-09-26] MEDS: Cefepime 2 GM in Dextrose(*) 2 GM/50 ML BAG IV SCH ×2 (02:00→13:55)
[2019-09-26] MEDS: Vancomycin(*) 1,250 MG in NS 0.9% 250 ML* 250 ML IVPB SCH (02:45)
[2019-09-26] MEDS: Heparin VIAL(*) 5000 UNITS/ML VIAL (FIVE THOUSAND) SUBCUT SCH ×3 (04:12→21:09)
[2019-09-26 05:32] LABS: BUN/Creatinine Ratio 14.6 (8-20); Calcium 8.8 mg/dL (8.6-10.3); EGFR African American 46.5 (>60); EGFR Non-African American 38.4 (>60); Magnesium 2.1 mg/dL (1.9-2.7); Potassium 4.5 mmol/L (3.5-5.0)
[2019-09-26] MEDS: Ascorbic Acid TAB* 500 MG PO SCH (08:34)
[2019-09-26] MEDS: amLODIPine TAB* 5 MG PO SCH (08:34)
[2019-09-26] MEDS: Multivitamins/Minerals TAB PO SCH (08:34)
[2019-09-26] MEDS: Magnesium Hydroxide LIQ* 30 ML UDC PO SCH (08:35)
[2019-09-26] MEDS: NS 0.9% 1000 ML** 1,000 ML IV SCH ×2 (08:35→21:09)
[2019-09-26] MEDS: Pantoprazole TAB * 40 MG TAB PO SCH (08:35)
--- NOTE | 2019-09-26 11:25 | PN ---
Subjective Date of Service: 09/26/19 Interval History: Improving in terms of leg swelling and redness. Afebrile overnight. No complain of pain. Objective Active Medications: Amlodipine Besylate (Norvasc Tab*) 5 mg PO DAILY [facility] Last Admin: 09/26/19 08:34 Dose: 5 mg Ascorbic Acid (Vitamin C Tab*) 500 mg PO DAILY [facility] Last Admin: 09/26/19 08:34 Dose: 500 mg Bisacodyl (Dulcolax Ec Tab*) 5 mg PO DAILY PRN PRN Reason: CONSTIPATION Heparin Sodium (Porcine) (Heparin Vial(*)) 5,000 units SUBCUT Q8HR [facility] Last Admin: 09/26/19 04:12 Dose: 5,000 units Sodium Chloride (Ns 0.9% 1000 Ml) 1,000 mls @ 100 mls/hr IV PER RATE [facility] Last Admin: 09/26/19 08:35 Dose: 100 mls/hr Vancomycin HCl 1,250 mg/ (Sodium Chloride) 250 mls @ 166.667 mls/hr IVPB Q24H [facility] Last Admin: 09/26/19 02:45 Dose: 166.667 mls/hr Cefepime HCl (Maxipime 2 Gm In Dextrose Duplex (*)) 2 gm in 50 mls @ 100 mls/ hr IV Q12H [facility] Last Admin: 09/26/19 02:00 Dose: 100 mls/hr Magnesium Hydroxide (Milk Of Magnesia Liq*) 30 ml PO DAILY [facility] Last Admin: 09/26/19 08:35 Dose: 30 ml Multivitamins/Minerals (Theragran/Minerals Tab*) 1 tab PO DAILY [facility] Last Admin: 09/26/19 08:34 Dose: 1 tab Pantoprazole Sodium (Protonix Tab*) 40 mg PO DAILY [facility] Last Admin: 09/26/19 08:35 Dose: 40 mg Pharmacy Consult (Vancomycin Per Pharmacy*) 1 note FOLLOW UP .VANC PER PHARMACY [facility]; Protocol Pharmacy Profile Note (Vancomycin Trough Check) 1 note FOLLOW UP 0200 ONE Stop: 09/28/19 02:01 Vital Signs - 8 hr 09/26/19 09/26/19 09/26/19 03:48 07:15 08:00 Temperature 98.1 F 97.9 F Pulse Rate 59 57 Respiratory 14 14 18 Rate Blood Pressure 146/52 138/57 (mmHg) O2 Sat by Pulse 95 100 Oximetry Oxygen Devices in Use Now: None Exam: GENERAL: awake, alert, and oriented x3, NAD HEAD AND NECK: Atraumatic and normocephalic. Bilateral pupils are reactive. Oral mucosa is moist. NECK: Supple. No jugular venous distention. LUNGS: Clear to auscultation bilaterally. No wheezing, no rhonchi or rales. HEART: S1, S2. Regular rate and rhythm. ABDOMEN: Soft, nontender, nondistended. EXTREMITIES: swelling of the right foot with erythema and warmth on the foot up to mid bond region, improving based on demarcation, left knee post TKA changes. Result Diagrams: 09/25/19 06:13 09/26/19 05:10 Assess/Plan/Problems-Billing Assessment: 84 y/o male with history of arthritis, prostate cancer, CKD stage 3, presented with worsening right foot swelling with drainage. - Patient Problems (1) Cellulitis of right foot Current Visit: Yes Status: Acute Code(s): L03.115 - CELLULITIS OF RIGHT LOWER LIMB SNOMED Code(s): 495039834 Comment: - right foot cellulitis with underlying bursitis or abscess - MRI no osteomyelitis found - on Cefepime and vancomycin D2 - daily dressing change - ortho consult to see possibility of fluid drainage. (2) DVT prophylaxis Current Visit: Yes Status: Acute Code(s): Z29.9 - ENCOUNTER FOR PROPHYLACTIC MEASURES, UNSPECIFIED SNOMED Code(s): 611311431 Comment: sc heparin Status and Disposition: Inpatient Medicine. Attestation Documenting Resident: Cheryl Conway Supervising Physician: Ivett Attestation: This service has been performed in part by a resident under the direction of a teaching physician.IIvett, performed the service, or was physically present during the critical, or nicole portions of the service, furnished by the resident. I participated in the management of the patient.
--- NOTE | 2019-09-26 12:31 | CONS ---
ORTHOPEDIC CONSULTATION NOTE: DATE OF CONSULT: 09/26/19 Thank you for his orthopedic consultation. CHIEF COMPLAINT: Right foot infection. HISTORY OF PRESENT ILLNESS: Mr. Trinidad is an 84-year-old gentleman who had resection of an unspecifie d mass off of his right lateral border of his foot with Dr. 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 He donaldson s had some poor wound healing after the procedure and was placed on Keflex for infection. The patien t's reports that initially it scabbed up and dried out, but on Saturday of last week approximately 5 days ago, the wound opened up and started to drain purulent material. The patient was brought int [facility] on 09/25/19, for increasing pain, drainage and erythema around his foot. The patient reports 4/10 pain with weightbearing, decreased pain with rest. He reports that since being started on the IV antibiotics, he feels this has much improved. PAST MEDICAL HISTORY: Osteoarthritis, gout, prostate cancer, chronic kidney disease, and GERD. PAST SURGICAL HISTORY: Radical prostatectomy in 2006, bilateral total hip replacements, bilateral to gabrielle knee replacement, left shoulder replacement, and bilateral cataract surgeries. HOME MEDICATIONS: 1. Keflex 4 times daily. 2. Multivitamin. 3. Ascorbic acid. 4. Bisacodyl. 5. Probiotic. 6. Milk of magnesia. 7. Protonix 40 mg p.o. daily. ALLERGIES: No known drug allergies. FAMILY HISTORY: Negative. SOCIAL HISTORY: The patient lives with his , denies any alcohol or recreational drug use. No to bacco use. Full code. Normally an independent ambulator. REVIEW OF SYSTEMS: Fourteen systems were reviewed with the patient today. Positive for right foot pa in, some drainage, right foot erythema. Negative for fevers, chills, chest pain, shortness of breath , nausea, vomiting, headache or dizziness. Otherwise, the patient reports review of systems is negat vaibhav or not relevant. PHYSICAL EXAM: General: The patient is a well-nourished male in no apparent distress. Alert and or iented x3. Pleasant mood, appropriate affect. Accompanied by his supportive . Gait is no asses sed. Coordination normal. Vitals: Temperature 97.9, pulse 57, blood pressure 138/57. HEENT: Atrau matic and normocephalic. Pupils equal and reactive to light. Chest: Unlabored breathing. Right low er extremity: The patient has no palpable masses or lymph nodes. He has an open wound along the mehdi ntar aspect of his right fifth MTP joint. This is about 1 cm in diameter. There is a clear serous d rainage. Minimal erythema here. I cannot express any additional fluid. No palpable fluctuance. So me mild erythema in this region. Prior marker up in to his mid calf is visualized, but there is no s ignificant cellulitis of the distal leg. He demonstrates dorsiflexion, plantar flexion, 2+ palpable DP pulse. Full sensation to light touch in all nerve distributions. DIAGNOSTIC STUDIES/LAB DATA: Studies: Labs shows white blood cells 6.1, hematocrit 33, platelets 19 7. ESR 74. BUN and creatinine 25 and 1.71. Sodium 134, potassium 4.5, chloride 106. D-dimer 322, CRP 111. Plain x-rays of the foot showed no obvious osteo or abnormality. MRI of the foot shows a likely bursitis. There is a small amount of fluid along the fifth MTP joint. No obvious osteomyelitis. ASSESSMENT AND PLAN: Mr. Trinidad is an 84-year-old gentleman with a nonhealing wound and likely infect ion in the right foot. He had a podiatry procedure 1 month ago and has gone on to develop infection here. MRI was reviewed, which shows no evidence of osteo. Although there is some signal change boogie cating fluid collection along the MTP, on physical exam, I see no fluctuance and there is a large ope n wound with some drainage, that does not appear to be purulent. The patient admits that the IV antibiotics are helping him significantly over the last 24 hours. I w ould recommend another 24 to 48 hours of IV antibiotics and home on p.o. antibiotics. The patient ca n follow up with one of our foot and ankle specialists as an outpatient. The patient and his ar e given phone number and they will contact Dr. Saleem or Dr. Alfred for followup within the next we ek. Of course, while the patient is hospitalized, I will be checking on him daily. Please call with any questions. At this time, I would not recommend any surgical intervention for this right foot wound and infection . [id number]/[facility] #: [id number]
[2019-09-27] MEDS: Cefepime 2 GM in Dextrose(*) 2 GM/50 ML BAG IV SCH ×2 (02:35→14:15)
[2019-09-27] MEDS: Vancomycin(*) 1,250 MG in NS 0.9% 250 ML* 250 ML IVPB SCH (03:14)
[2019-09-27] MEDS: Heparin VIAL(*) 5000 UNITS/ML VIAL (FIVE THOUSAND) SUBCUT SCH (05:15)
[2019-09-27] MEDS: Multivitamins/Minerals TAB PO SCH (07:55)
[2019-09-27] MEDS: Magnesium Hydroxide LIQ* 30 ML UDC PO SCH (07:55)
[2019-09-27] MEDS: Pantoprazole TAB * 40 MG TAB PO SCH (07:55)
[2019-09-27] MEDS: Ascorbic Acid TAB* 500 MG PO SCH (07:55)
[2019-09-27] MEDS: amLODIPine TAB* 5 MG PO SCH (07:55)
--- NOTE | 2019-09-27 10:28 | PN ---
Progress Note - Progress Note Date of Service: 09/27/19 SOAP: Subjective: [Pt reports doing well. No complaints of pain.] Objective: [A and O x 3, NAD R foot dressing changed, SS drainage on dressing. Erythema limits outlined and erythema not extending beyond. Gross motor intact , NV function intact.] Assessment: [84 yo male with non-healing wound R foot] Plan: [Con't IV vanco for another 24 hours Plan for D/C home on PO abx F/U with Tima or Harper next week]
--- NOTE | 2019-09-27 16:24 | PN ---
Subjective Date of Service: 09/27/19 Interval History: No overnight events. Pt thinks RLE slightly more swollen than yesterday, but otherwise denies pain, fevers, chills. He has been walking a lot but not elevating his leg. Kept on IVF too? Will DC today. Ortho recommending 1 more day on IV antibiotics. Objective Active Medications: Amlodipine Besylate (Norvasc Tab*) 5 mg PO DAILY [facility] Last Admin: 09/27/19 07:55 Dose: 5 mg Ascorbic Acid (Vitamin C Tab*) 500 mg PO DAILY [facility] Last Admin: 09/27/19 07:55 Dose: 500 mg Bisacodyl (Dulcolax Ec Tab*) 5 mg PO DAILY PRN PRN Reason: CONSTIPATION Enoxaparin Sodium (Lovenox(*)) 40 mg SUBCUT BEDTIME [facility] Vancomycin HCl 1,250 mg/ (Sodium Chloride) 250 mls @ 166.667 mls/hr IVPB Q24H [facility] Last Admin: 09/27/19 03:14 Dose: 166.667 mls/hr Cefepime HCl (Maxipime 2 Gm In Dextrose Duplex (*)) 2 gm in 50 mls @ 100 mls/ hr IV Q12H [facility] Last Admin: 09/27/19 14:15 Dose: 100 mls/hr Magnesium Hydroxide (Milk Of Magnesia Liq*) 30 ml PO DAILY [facility] Last Admin: 09/27/19 07:55 Dose: 30 ml Multivitamins/Minerals (Theragran/Minerals Tab*) 1 tab PO DAILY [facility] Last Admin: 09/27/19 07:55 Dose: 1 tab Pantoprazole Sodium (Protonix Tab*) 40 mg PO DAILY [facility] Last Admin: 09/27/19 07:55 Dose: 40 mg Pharmacy Consult (Vancomycin Per Pharmacy*) 1 note FOLLOW UP .VANC PER PHARMACY [facility]; Protocol Pharmacy Profile Note (Vancomycin Trough Check) 1 note FOLLOW UP 0200 ONE Stop: 09/28/19 02:01 Vital Signs - 8 hr 09/27/19 09/27/19 11:00 15:40 Temperature 96.9 F 98.1 F Pulse Rate 54 59 Respiratory 16 16 Rate Blood Pressure 140/53 147/57 (mmHg) O2 Sat by Pulse 100 99 Oximetry Oxygen Devices in Use Now: None Appearance: well appearing man in street clothes alert and interactive with family, NAD, pleasant Eyes: No Scleral Icterus Ears/Nose/Mouth/Throat: Clear Oropharnyx, Mucous Membranes Moist Neck: NL Appearance and Movements; NL JVP, Trachea Midline Respiratory: Symmetrical Chest Expansion and Respiratory Effort, Clear to Auscultation Cardiovascular: NL Sounds; No Murmurs; No JVD, RRR Abdominal: NL Sounds; No Tenderness; No Distention, No Hepatosplenomegaly Extremities: - - LLE without edema, RLE with 1+ edema, bandage c/d/i, erythema not beyond marker line Neurological: Alert and Oriented x 3, NL Gait Result Diagrams: 09/25/19 06:13 09/26/19 05:10 Microbiology and Other Data: Microbiology 09/25/19 14:25 Skin and Soft Tissue MRSA/MSSA (PCR - Final Wound Mrsa Negative S.aureus Negative Gram Stain - Final Wound Culture - Final Pseudomonas Aeruginosa Normal Avelina 09/25/19 01:53 Gram Stain - Final Foot Right Wound Culture - Final Normal Avelina 09/25/19 01:42 Aerobic Blood Culture - Preliminary Blood Venous No Growth Day 2 Anaerobic Blood Culture - Preliminary No Growth Day 2 09/25/19 01:42 Aerobic Blood Culture - Preliminary Blood Venous No Growth Day 2 Anaerobic Blood Culture - Preliminary No Growth Day 2 Assess/Plan/Problems-Billing Assessment: 84 y/o male with history of arthritis, prostate cancer, CKD stage 3, presented with worsening right foot swelling with drainage. MRI without osteo. - Patient Problems (1) Cellulitis of right foot Comment: Right foot cellulitis with underlying bursitis or abscess. MRI without osteomyelitis. Pseudomonas on wound culture. - cont vanc (09/25 - ) until cultures with sensitivities - s/p Zosyn (09/25), then continued on cefepime (09/25 - ) - daily dressing change - ortho consult appreciated - likely home 09/28 with oral antibiotics witih pseudomonal coverage, will need foot ortho f/u (2) DVT prophylaxis Current Visit: Yes Status: Acute Code(s): Z29.9 - ENCOUNTER FOR PROPHYLACTIC MEASURES, UNSPECIFIED SNOMED Code(s): 217746971 Comment: sc heparin Status and Disposition: Inpatient Medicine.
[2019-09-27] MEDS: Enoxaparin(*) 40 MG/0.4 ML SYR SUBCUT SCH (19:23)
[2019-09-28] MEDS ORDERED: Vancomycin Trough Check NOTE FOLLOW UP ONE (02:00)
[2019-09-28] MEDS: Cefepime 2 GM in Dextrose(*) 2 GM/50 ML BAG IV SCH ×2 (02:17→13:34)
[2019-09-28] MEDS: Vancomycin(*) 1,250 MG in NS 0.9% 250 ML* 250 ML IVPB SCH (03:12)
[2019-09-28] MEDS: Pantoprazole TAB * 40 MG TAB PO SCH (07:39)
[2019-09-28] MEDS: amLODIPine TAB* 5 MG PO SCH (07:39)
[2019-09-28] MEDS: Multivitamins/Minerals TAB PO SCH (07:39)
[2019-09-28] MEDS: Magnesium Hydroxide LIQ* 30 ML UDC PO SCH (07:39)
[2019-09-28] MEDS: Ascorbic Acid TAB* 500 MG PO SCH (07:39)
--- NOTE | 2019-09-28 15:09 | PN ---
Progress Note - Progress Note Date of Service: 09/28/19 SOAP: Subjective: []Pt seen at bedside. Denies fever, chills, right foot pain. Feels the redness of his foot/leg has improved and he is feeling well. Objective: []Gen: nontoxic appearing RLE: Right foot with 1cm ulceration on plantar aspect of 5th MTP, minimal serous drainage on dressing none active, no purulence, nontender to palpation, no fluctuance. Foot, ankle and lower leg with edema and mild erythema which is within the demarcated lines, there is no tenderness. Full nonpainful ROM of MTPs and ankle. Sensation intact to light touch throughout RLE Assessment: []Right foot ulcer of lateral aspect Plan: []Heel WB Keep wound covered with dry sterile gauze DC on PO ABX per medicine team F/U within [address] Saleem or Dr Alfred Return to the hospital if systemically ill, fever, worsening redness, drainage, pain. Vital Signs Temp 97.4 F 09/28/19 11:15 Pulse 60 09/28/19 11:15 Resp 20 09/28/19 11:15 BP 132/46 09/28/19 11:15 Pulse Ox 100 09/28/19 11:15 Intake & Output 09/27/19 09/28/19 09/28/19 18:59 06:59 18:59 Intake Total 1921 75 1750 Balance 1922 75 1750 Intake: IV Fluids 892 20 30 NS (0.9%) 892 20 30 IVPB 310 55 280 ABX - CEFEPIME 55 55 ABX - VANCOMYCIN 255 280 Oral 720 0 1440 Other: Estimated Void Medium Date of Last Bowel [id number] Movement # Bowel Movements 0 1 Estimated Stool Amount Medium # Voids 0 2 Laboratory Last Values WBC 6.1 10^3/uL (3.5-10.8) 09/25/19 06:13 RBC 3.47 10^6 /uL (4.18-5.48) L 09/25/19 06:13 Hgb 11.4 g/dL (14.0-18.0) L 09/25/19 06:13 Hct 33 % (42-52) L 09/25/19 06:13 MCV 95 fL (80-94) H 09/25/19 06:13 MCH 33 pg (27-31) H 09/25/19 06:13 MCHC 35 g/dL (31-36) 09/25/19 06:13 RDW 13 % (10-15) 09/25/19 06:13 Plt Count 197 10^3/uL (150-450) 09/25/19 06:13 MPV 7.4 fL (7.4-10.4) 09/25/19 06:13 Neut % (Auto) 64.7 % 09/25/19 06:13 Lymph % (Auto) 13.5 % 09/25/19 06:13 [place] % (Auto) 14.0 % 09/25/19 06:13 Eos % (Auto) 7.4 % 09/25/19 06:13 Baso % (Auto) 0.4 % 09/25/19 06:13 Absolute Neuts (auto) 3.9 10^3/ul (1.5-7.7) 09/25/19 06:13 Absolute Lymphs (auto) 0.8 10^3/ul (1.0-4.8) L 09/25/19 06:13 Absolute Monos (auto) 0.9 10^3/ul (0-0.8) H 09/25/19 06:13 Absolute Eos (auto) 0.5 10^3/ul (0-0.6) 09/25/19 06:13 Absolute Basos (auto) 0.0 10^3/ul (0-0.2) 09/25/19 06:13 Absolute Nucleated RBC 0.0 10^3/ul 09/25/19 06:13 Nucleated RBC % 0.0 09/25/19 06:13 ESR 74 mm/Hr (0-19) H 09/24/19 19:04 D-Dimer, Quantitative 322 ng/mL (Less Than 230) H 09/24/19 19:04 Sodium 134 mmol/L (135-145) L 09/26/19 05:10 Potassium 4.5 mmol/L (3.5-5.0) 09/26/19 05:10 Chloride 106 mmol/L (101-111) 09/26/19 05:10 Carbon Dioxide 22 mmol/L (22-32) 09/26/19 05:10 Anion Gap 6 mmol/L (2-11) 09/26/19 05:10 BUN 25 mg/dL (6-24) H 09/26/19 05:10 Creatinine 1.71 mg/dL (0.67-1.17) H 09/26/19 05:10 Est GFR ( Amer) 46.5 (>60) 09/26/19 05:10 Est GFR (Non-Af Amer) 38.4 (>60) 09/26/19 05:10 BUN/Creatinine Ratio 14.6 (8-20) 09/26/19 05:10 Glucose 100 mg/dL (70-100) 09/26/19 05:10 Hemoglobin A1c 5.7 % (4.0-5.6) H 09/25/19 06:13 Calcium 8.8 mg/dL (8.6-10.3) 09/26/19 05:10 Magnesium 2.1 mg/dL (1.9-2.7) 09/26/19 05:10 Total Bilirubin 0.50 mg/dL (0.2-1.0) 09/24/19 19:04 AST 15 U/L (13-39) 09/24/19 19:04 ALT 12 U/L (7-52) 09/24/19 19:04 Alkaline Phosphatase 62 U/L (34-104) 09/24/19 19:04 C-Reactive Protein 111.10 mg/L (<8.01) H 09/24/19 19:04 Total Protein 6.7 g/dL (6.4-8.9) 09/24/19 19:04 Albumin 3.7 g/dL (3.2-5.2) 09/24/19 19:04 Globulin 3.0 g/dL (2-4) 09/24/19 19:04 Albumin/Globulin Ratio 1.2 (1-3) 09/24/19 19:04 Vitamin B12 330 pg/mL (180-914) 09/25/19 06:14 Folate > 20.00 ng/mL (>3.99) 09/25/19 06:14 Vancomycin Trough 13.0 mcg/mL 09/28/19 02:07
--- NOTE | 2019-09-28 17:47 | PN ---
Subjective Date of Service: 09/28/19 Interval History: Patient felt redness significantly improved but significant worsening right leg swelling, otherwise he had no pain all along. No fever overnight. Objective Active Medications: Amlodipine Besylate (Norvasc Tab*) 5 mg PO DAILY [facility] Last Admin: 09/28/19 07:39 Dose: 5 mg Ascorbic Acid (Vitamin C Tab*) 500 mg PO DAILY [facility] Last Admin: 09/28/19 07:39 Dose: 500 mg Bisacodyl (Dulcolax Ec Tab*) 5 mg PO DAILY PRN PRN Reason: CONSTIPATION Enoxaparin Sodium (Lovenox(*)) 40 mg SUBCUT BEDTIME [facility] Last Admin: 09/27/19 19:23 Dose: 40 mg Cefepime HCl (Maxipime 2 Gm In Dextrose Duplex (*)) 2 gm in 50 mls @ 100 mls/ hr IV Q12H [facility] Last Admin: 09/28/19 13:34 Dose: 100 mls/hr Magnesium Hydroxide (Milk Of Magnesia Liq*) 30 ml PO DAILY [facility] Last Admin: 09/28/19 07:39 Dose: 30 ml Multivitamins/Minerals (Theragran/Minerals Tab*) 1 tab PO DAILY [facility] Last Admin: 09/28/19 07:39 Dose: 1 tab Pantoprazole Sodium (Protonix Tab*) 40 mg PO DAILY [facility] Last Admin: 09/28/19 07:39 Dose: 40 mg Pharmacy Consult (Vancomycin Per Pharmacy*) 1 note FOLLOW UP .VANC PER PHARMACY [facility]; Protocol Vital Signs - 8 hr 09/28/19 09/28/19 11:15 15:15 Temperature 97.4 F 97.7 F Pulse Rate 60 61 Respiratory 20 20 Rate Blood Pressure 132/46 152/61 (mmHg) O2 Sat by Pulse 100 99 Oximetry Oxygen Devices in Use Now: None Exam: Appearance: well appearing man in street clothes alert and interactive with family, NAD, pleasant Eyes: No Scleral Icterus Ears/Nose/Mouth/Throat: Clear Oropharnyx, Mucous Membranes Moist Neck: NL Appearance and Movements; NL JVP, Trachea Midline Respiratory: Symmetrical Chest Expansion and Respiratory Effort, Clear to Auscultation Cardiovascular: NL Sounds; No Murmurs; No JVD, RRR Abdominal: NL Sounds; No Tenderness; No Distention, No Hepatosplenomegaly Extremities: - - LLE without edema, RLE with 1+ edema up to knee, erythema subsiding, but warmth up to knee together with edema Neurological: Alert and Oriented x 3, NL Gait Result Diagrams: 09/25/19 06:13 09/26/19 05:10 Microbiology and Other Data: Microbiology 09/25/19 14:25 Skin and Soft Tissue MRSA/MSSA (PCR - Final Wound Mrsa Negative S.aureus Negative Gram Stain - Final Wound Culture - Final Pseudomonas Aeruginosa Normal Avelina 09/25/19 01:53 Gram Stain - Final Foot Right Wound Culture - Final Normal Avelina 09/25/19 01:42 Aerobic Blood Culture - Preliminary Blood Venous No Growth Day 2 Anaerobic Blood Culture - Preliminary No Growth Day 2 09/25/19 01:42 Aerobic Blood Culture - Preliminary Blood Venous No Growth Day 2 Anaerobic Blood Culture - Preliminary No Growth Day 2 Assess/Plan/Problems-Billing Assessment: 84 y/o male with history of arthritis, prostate cancer, CKD stage 3, presented with worsening right foot swelling with drainage, found to have localized fluid collection with myositis currently on medical management. - Patient Problems (1) Cellulitis of right foot Current Visit: Yes Status: Acute Code(s): L03.115 - CELLULITIS OF RIGHT LOWER LIMB SNOMED Code(s): 062445619 Comment: Right foot cellulitis with underlying bursitis or abscess. MRI without osteomyelitis. Pseudomonas on wound culture. - cont vanc (09/25 - ) for now considering the worsening of leg warmth and swelling - s/p Zosyn (09/25), then continued on cefepime (09/25 - ) - daily dressing change - ortho consult appreciated - ID consult for further abx management (2) DVT prophylaxis Current Visit: Yes Status: Acute Code(s): Z29.9 - ENCOUNTER FOR PROPHYLACTIC MEASURES, UNSPECIFIED SNOMED Code(s): 673008160 Comment: sc Lovenox Status and Disposition: Inpatient Medicine. Attestation Documenting Resident: Cheryl Conway Supervising Physician: Antonietta Booker Attending/Supervising Physician Comment: Improving RLE cellulitis, though still with marked edema and rubor. Continue IV abx today; appreciate ortho input Attestation: This service has been performed in part by a resident under the direction of a teaching physician.I, Antonietta Booker, performed the service, or was physically present during the critical, or nicole portions of the service, furnished by the resident. I participated in the management of the patient.
[2019-09-28] MEDS: Enoxaparin(*) 40 MG/0.4 ML SYR SUBCUT SCH (21:01)
--- NOTE | 2019-09-28 21:08 | CONS ---
CONSULTATION REPORT: DATE OF ADMISSION: 09/25/19 DATE OF CONSULT: 09/28/19 PRIMARY CARE PHYSICIAN: Kristian Woods MD PHYSICIAN REQUESTING CONSULTATION: Dr. Kearney. CONSULTING SERVICE: Infectious Disease. PROVIDER: Marc Russo NP ATTENDING PHYSICIAN: Dr. Mauricio Buchanan.* (DICTATED BY MARC RUSSO NP) REASON FOR CONSULTATION: Right foot infection. IMPRESSION: 1. Right foot infection, status post I and D with excision by Podiatry. The patient was on approximately a week of Keflex as an outpatient. He developed increased redness and swelling of the leg at the site of the procedure. Wound culture with pseudomonas. He has been on vancomycin and cefepime while in the hospital. MRI with findings suggestive of myositis, tenosynovitis, fluid collection at the fifth MTP joint. No findings of osteomyelitis. The fluid collection could represent an abscess. ESR and CRP elevated on admission. No leukocytosis and afebrile. 2. Peripheral neuropathy. The patient has sensation intact to light touch throughout the right lower extremity. 3. History of arthritis, status post bilateral knee, hip and left shoulder replacements. 4. Chronic kidney disease, stage 3. 5. Prostate cancer, status post bilateral pelvic lymph node dissection, radical retropubic prostatectomy. PLAN/RECOMMENDATIONS: Recommend continuing cefepime overnight. Discontinue vancomycin. Repeat a CRP in the AM. If the leg continues to improve tomorrow, he can be discharged on oral antibiotics. He has followup with Orthopedics scheduled for Saturday morning outpatient. We will plan for a 2- week total course of antibiotics and this can be transitioned to Levaquin at discharge. Follow up with ID outpatient next week. HISTORY OF PRESENT ILLNESS: Mr. 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 Maher. He developed some discomfort in his right fifth metatarsal. Dr. Maher removed a "sweat gland". The patient had a followup after the procedure. He was told that he did not have an infection yet, but there was a possibility that he could develop an infection and was started on Keflex. The foot became more swollen last week with redness and swelling on Saturday or . He called Dr. Maher's office, who recommended that he go to the emergency room for evaluation. While in the emergency room, the patient was complaining of pain in his right foot, otherwise feeling well. He had a plain film x-ray showing possible osteomyelitis of the right foot. He had venous Doppler ultrasound to rule out DVT, which was negative and he was referred to the hospitalist service for cellulitis with failure of outpatient Keflex therapy. While in the hospital, he underwent a right lower extremity MRI showing "a fluid collection to the plantar lateral of the fifth MTP joint measuring 2.05 x 0. 5 x 2 cm representing a bursitis, but with abscess within the differential, mild edema identified within the first metatarsal head adjacent to the MTP joint secondary to arthropathy, no acute marrow edema to suggest osteomyelitis, muscle edema suggestive of myositis, small focus of magnet susceptibility identified at the plantar aspect of the proximal forefoot suggestive of postoperative change or foreign body, small effusions at the first and fifth MTP joints, tenosynovitis of the flexor hallucis tendon". He had a wound culture that grew pseudomonas. He has been afebrile with no leukocytosis. On admission, his ESR was 74, CRP 111. While in the hospital, he was initially on Zosyn and vancomycin. This was changed to vancomycin and cefepime. When the cultures returned with Pseudomonas, vancomycin was discontinued. He has no pain in the foot. He denies fevers, chills, nausea, vomiting diarrhea. He continues to have edema with erythema and warmth in the lower leg. Orthopedics has been following, who does not feel he needs surgery at this time. PAST MEDICAL HISTORY: 1. Arthritis. 2. Gout. 3. Prostate cancer. 4. Chronic kidney disease, stage 3. 5. GERD. 6. Peripheral neuropathy. PAST SURGICAL HISTORY: 1. Status post bilateral pelvic lymph node dissection. 2. Status post radical radical retropubic prostatectomy. 3. Status post right total knee arthroplasty. 4. Status post left total knee arthroplasty. 5. Status post bilateral hip arthroplasty. 6. Status post left shoulder replacement. 7. Status post bilateral cataract extractions. HOME MEDICATIONS: 1. Cephalexin 500 mg by mouth 4 times daily. 2. Multivitamin 1 tablet by mouth daily. 3. Lactobacillus 1 tablet by mouth daily. 4. Bisacodyl 5 mg by mouth daily as needed for constipation. 5. Vitamin C 500 mg by mouth daily. 6. Pantoprazole 40 mg by mouth daily. HOSPITAL MEDICATIONS: 1. Norvasc 5 mg by mouth daily. 2. Vitamin C 500 mg by mouth daily. 3. Bisacodyl 5 mg by mouth daily as needed for constipation. 4. Cefepime 2 g IV q.12 hours. 5. Lovenox 40 mg subcutaneous at bedtime. 6. Milk of magnesia 30 mL by mouth daily. 7. Multivitamin 1 tablet by mouth daily. 8. Protonix 40 mg by mouth daily. 9. Vancomycin 1250 mg IV every 24 hours. ALLERGIES: No known drug allergies. FAMILY HISTORY: Denies family history of recurrent, resistant infections. No family history of heart disease or diabetes. Brother with a history of breast cancer, 3 brothers with a history of prostate cancer. SOCIAL HISTORY: He denies alcohol or recreational drug use. He is a former smoker quitting in 1967. He has a 10-year pack smoking history. REVIEW OF SYSTEMS: I performed a 10-point review of systems. All the pertinent positives and negatives are mentioned in the history of present illness. The remaining review of systems are negative. He does report recently getting a flu shot, which he had chills after, but that resolved. Remaining of review of systems are negative. PHYSICAL EXAMINATION: Vital Signs: Temperature 97.4, heart rate 60, respiratory rate 20, O2 sat 100% on room air, blood pressure 132/46. General Appearance: Alert, pleasant appears to be in no acute distress. Head: Normocephalic, atraumatic. EENT: Extraocular movements are intact. No subconjunctival hemorrhage. Moist mucous membranes. Neurological: Alert and oriented. Cranial nerves II through XII are grossly intact. He has sensation intact to the right lower extremity. Cardiovascular: Regular rate and rhythm. S1, S2 present. No murmurs, rubs, or gallops heard. Respiratory: No accessory muscle use. Lungs are clear to auscultation. Abdomen: Bowel sounds present. Abdomen is soft, nontender, nondistended. Extremities: There is 1+ right lower extremity edema. DP pulse is 1+ on the right. Musculoskeletal: No clubbing or cyanosis noted. Exhibits good strength in all extremities. Psychological: Calm and cooperative. Skin: He has erythema to the right lower extremity with warmth. There is an ulcer to the plantar aspect of the right foot at the fifth MTP approximately 1 cm x 1 cm with a small amount of serous drainage on the dressing. No active drainage, purulence and no tenderness as well as palpation or fluctuance. The edema and erythema extend up to the lower leg and ankle. DIAGNOSTIC STUDIES/LAB DATA: BMP from 09/26/19: Sodium 134, potassium 4.5, chloride 106, CO2 of 22, BUN 25, creatinine 1.71, glucose 100. CBC from , white blood cell count 6.1, hemoglobin 11.4, hematocrit 33, platelet count 197. Inflammatory markers from admission on 09/24/19, ESR 74, CRP 111.1. Please see impression and recommendations outlined above. Thank you for asking us to see Mr. Trinidad in consultation. The case has been reviewed with my attending, Dr. Buchanan, who agrees with the plan of care. Reviewed by MARC RUSSO, XANDER 09/29/19 0839 [id number]/[facility] #: [id number] RUDOLPH
[2019-09-29] MEDS: Cefepime 2 GM in Dextrose(*) 2 GM/50 ML BAG IV SCH ×2 (03:07→13:09)
[2019-09-29 08:32] LABS: Albumin 3.9 g/dL (3.2-5.2); Albumin/Globulin Ratio 1.3 (1-3); BUN/Creatinine Ratio 19.2 (8-20); C Reactive Protein 24.98 mg/L (<8.01); Calcium 9.3 mg/dL (8.6-10.3); EGFR African American 44.7 (>60); EGFR Non-African American 36.9 (>60); Globulin 3.1 g/dL (2-4); Total Bilirubin 0.5 mg/dL (0.2-1.0)
[2019-09-29 09:10] LABS: ABS Eosinophils 0.7 10^3/ul (0-0.6); ABS Lymphocytes 0.8 10^3/ul (1.0-4.8); ABS Monocytes 0.7 10^3/ul (0-0.8); ABS Neutrophils 3.7 10^3/ul (1.5-7.7); Eosinophil % 11.8 %; Hematocrit 35 % (42-52); Hemoglobin 11.9 g/dL (14.0-18.0); Lymphocyte % 13.3 %; Mean Corpuscular HGB Conc 34 g/dL (31-36); Mean Corpuscular Hemoglobin 33 pg (27-31); Mean Corpuscular Volume 95 fL (80-94); Mean Platelet Volume 7.6 fL (7.4-10.4); Nucleated Red Blood Cells % 0.2; Platelet Count 248 10^3/uL (150-450); Red Blood Count 3.65 10^6 /uL (4.18-5.48); Red Cell Distribution Width 13 % (10-15); White Blood Count 5.8 10^3/uL (3.5-10.8)
--- NOTE | 2019-09-29 09:31 | PN ---
Progress Note - Progress Note Date of Service: 09/29/19 SOAP: Subjective: CC: Right foot infection HPI: Mr. Trinidad is an 84 yo male with PMH significant for arthritis, FOUT, prostate cancer, CKD stage 3, GERD, and peripheral neuropathy; who presented to the hospital with a right foot infection. Denies fever, chills, nausea, vomiting, or diarrhea. He feels like the swelling to the right LE has improved overnight. Objective: Vital Signs - 8 hr 09/29/19 09/29/19 03:15 07:15 Temperature 98.1 F 97.8 F Pulse Rate 61 60 Respiratory 18 20 Rate Blood Pressure 144/60 139/65 (mmHg) O2 Sat by Pulse 97 100 Oximetry Physical Exam: General: NAD, sitting up in a chair Neurological: Alert and Oriented x4 HEENT: Moist MM, no thrush Cardiovascular: Heart rate regular, grade 3/6 systolic murmur heard best at the left lower sternal border Respiratory: Lung sounds clear Abdominal: Bowel sounds present; ABD soft, non tender and non distended MSK: Able to move right ankle and toes. 1+ right LE edema Skin: Slight erythema on the right bond to ankle, wound to the plantar aspect of the right 5th toes at the base of the toe. There is drainage on the bandage. Laboratory Results - last 24 hr 09/29/19 09/29/19 08:03 08:03 WBC 5.8 RBC 3.65 L Hgb 11.9 L Hct 35 L MCV 95 H MCH 33 H MCHC 34 RDW 13 Plt Count 248 MPV 7.6 Neut % (Auto) 62.4 Lymph % (Auto) 13.3 [place] % (Auto) 12.3 Eos % (Auto) 11.8 Baso % (Auto) 0.2 Absolute Neuts (auto) 3.7 Absolute Lymphs (auto) 0.8 L Absolute Monos (auto) 0.7 Absolute Eos (auto) 0.7 H Absolute Basos (auto) 0.0 Absolute Nucleated RBC 0.0 Nucleated RBC % 0.2 Sodium 135 Potassium 5.0 Chloride 105 Carbon Dioxide 24 Anion Gap 6 BUN 34 H Creatinine 1.77 H Est GFR ( Amer) 44.7 Est GFR (Non-Af Amer) 36.9 BUN/Creatinine Ratio 19.2 Glucose 103 H Calcium 9.3 Total Bilirubin 0.50 AST 18 ALT 17 Alkaline Phosphatase 68 C-Reactive Protein 24.98 H Total Protein 7.0 Albumin 3.9 Globulin 3.1 Albumin/Globulin Ratio 1.3 Microbiology 09/25/19 01:42 Aerobic Blood Culture - Preliminary Blood Venous No Growth Day 4 Anaerobic Blood Culture - Preliminary No Growth Day 4 09/25/19 01:42 Aerobic Blood Culture - Preliminary Blood Venous No Growth Day 4 Anaerobic Blood Culture - Preliminary No Growth Day 4 09/25/19 14:25 Skin and Soft Tissue MRSA/MSSA (PCR - Final Wound Mrsa Negative S.aureus Negative Gram Stain - Final Wound Culture - Final Pseudomonas Aeruginosa Normal Avelina 09/25/19 01:53 Gram Stain - Final Foot Right Wound Culture - Final Normal Avelina Assessment: 1. Right foot infection with cellulitis, myositis and tenosynovitis. MRI with myositis, tenosynovitis, and fluid collection at the fifth MTP joint, no osteomyelitis. Wound culture with pseudomonas. Afebrile and no leukocytosis. CRP is trending down. 2. Peripheral neuropathy to LEs. Sensation intact to light touch on the right LE. Plan: Continue cefepime while in the hospital. Transition to oral Levaquin at discharge to complete a 14 day course of ABX, day 4. Followup with orthopedics outpatient. Follow up with ID outpatient next week.
[2019-09-29] MEDS: Pantoprazole TAB * 40 MG TAB PO SCH (09:50)
[2019-09-29] MEDS: Multivitamins/Minerals TAB PO SCH (09:50)
[2019-09-29] MEDS: Ascorbic Acid TAB* 500 MG PO SCH (09:50)
[2019-09-29] MEDS: Magnesium Hydroxide LIQ* 30 ML UDC PO SCH (09:50)
[2019-09-29] MEDS: amLODIPine TAB* 5 MG PO SCH (09:50)
[2019-09-29 11:45] VITALS: BP 135/58
--- NOTE | 2019-09-29 14:54 | PN ---
Progress Note - Progress Note Date of Service: 09/29/19 SOAP: Subjective: Pt with right foot wound. States that it is doing much better, feels as though swelling and erythema are improving. Has appt scheduled as outpt to see Dr. Saleem on Saturday. Denies f/c, n/v, CP/SOB Objective: Vital Signs: Temp Pulse Resp BP Pulse Ox 97.5 F 60 18 135/58 100 09/29/19 11:15 09/29/19 11:15 09/29/19 11:15 09/29/19 11:15 09/29/19 11:15 Gen: A&Ox3, NAD at rest RLE: 2 cm round wound to plantar aspect of distal 5th MT. No active drainage. Mild swelling and erythema to foot. N/V intact Assessment: Right foot ulcer Plan: Dry dressings daily Abx per ID Did discuss with pt that he may need surgical intervention to excise area of ulcer with possible MT head excision. Ok to f/u as outpt. Pt aware to call sooner if symptoms worsen.
--- NOTE | 2019-09-30 03:06 | DS ---
CC: Dr. Woods; Dr. Adonay Alfred * DISCHARGE SUMMARY: DATE OF ADMISSION: 09/25/19 DATE OF DISCHARGE: 09/29/19 PRINCIPAL DISCHARGE DIAGNOSES: 1. Right lower extremity cellulitis. 2. Tenosynovitis of the flexor hallucis tendon. SECONDARY DISCHARGE DIAGNOSES: 1. Chronic kidney disease. 2. Peripheral neuropathy. 3. Osteoarthritis. 4. History of prostate cancer. MEDICATIONS ON DISCHARGE: 1. Multivitamin daily. 2. Probiotic daily. 3. Dulcolax 5 mg daily p.r.n. constipation. 4. Vitamin C 500 mg daily. 5. Protonix 40 mg daily. 6. Amlodipine 5 mg daily. 7. Levofloxacin 750 mg every other day for 9 more days. PHYSICAL EXAMINATION: Temperature 97.5, heart rate 60, respiratory rate 16, pulse ox 100% on room air, blood pressure 135/58. General: Alert, well- appearing man who appears younger than his stated age, in no distress; resting in the chair with his feet elevated. He is also seen ambulating in the hallways frequently. HEENT: Pupils are equal, round, and reactive to light. Oral mucosa is moist. Neck: No JVP. No adenopathy. Chest: He is in a regular rate and rhythm with no murmurs. His lungs are clear bilaterally. Abdomen: Soft, nontender, and nondistended. No guarding or rebound. No CVA tenderness. Extremities: His right lower extremity has 1+ edema to the mid bond with scant erythema that has dissipated since discharge from the drawn line. He has a 1 cm superficial wound on the plantar surface of the foot at the base of the fifth metatarsal that is not draining and has minimal erythema surrounding it. He has good range of motion of his ankle and his toes and his knee. The other leg has hyperpigmented venous stasis changes. His distal pulses are 2+ bilaterally. Both knees have old healed incisions with no warmth or effusion. PERTINENT IMAGING: From this hospitalization, a lower extremity MRI from showed a fluid collection, identified plantar lateral to the fifth MTP joint measuring 2.0 x 0.5 x 2.0 cm. This likely represents adventitial bursitis. Abscess is within the differential. Mild edema is identified within the first metatarsal head adjacent to the MTP joint secondary to arthropathy, no acute marrow edema within the remaining visualized foot to suggest osteomyelitis. Muscle edema is visualized suggestive of myositis or diabetic myopathy, a small focus of magnetic susceptibility is identified at the plantar aspect of the proximal forefoot suggestive of postoperative change or foreign body, small effusions at the first and fifth MTP joint, tenosynovitis of the flexor hallucis tendon. Foot x-ray on 09/24/19 showed possible osteomyelitis. Recommend followup with an MRI. Venous Doppler study on 09/24/19 showed no evidence of right lower extremity DVT. CONSULTS DURING THIS ADMISSION: Dr. Pena from Orthopedics and Yeni Russo NP from Infectious Diseases. HOSPITAL COURSE BY PROBLEM: 1. Right lower extremity cellulitis, myositis, and tenosynovitis. He had been treated with Keflex as an outpatient for approximately 1 week, but the cellulitis was not improving, so he was admitted to the hospital. He had no evidence of sepsis on admission and he was treated with broad spectrum antibiotics with vancomycin and Zosyn initially, which was then switched to cefepime. He was continued on vancomycin and cefepime and his wound culture returned with pseudomonas. At that point, vancomycin was discontinued and he was continued on cefepime. Orthopedic Surgery did not feel that surgical intervention was warranted. Infectious Diseases was consulted and recommended discharge with p.o. fluoroquinolone for a total of 14-day course. His blood cultures remained negative. I explained the risks of fluoroquinolones to Mr. Trinidad and his daughter and explained concern for tendon rupture, vascular phenomenon, and confusion in an elderly person, they understand and I also explained the limitations of antibiotic choices given the pseudomonas that grew in his culture. They have a followup appointment with Dr. Alfred from Orthopedic Surgery this Saturday in 4 days and I will also schedule followup appointment with Infectious Diseases. 2. Chronic kidney disease. His creatinine remained at baseline during this hospitalization. He is being discharged on renally dosed levofloxacin. DISPOSITION: Mr. Trinidad is being discharged to home on 09/29/19 with antibiotics and followup with his primary care provider, Orthopedic Surgery, and Infectious Diseases. He and his daughter are in agreement with this discharge plan. He is to return to the emergency department if he develops fever or worsening pain, decreased range of motion in the joint or any other new symptoms. CONDITION AT THE TIME OF DISCHARGE: Stable. [id number]/[facility] #: [id number] [facility] CENTERMaritza
== END 2019-09-29 14:20 | disposition home health service (06) | DRG 603 ==
LOC: ED 18:24 → MED 09-25 00:32
PROVIDERS: ADMIT Internal Medicine; ATTEND Internal Medicine
DX: L03.115 Cellulitis of right lower limb (principal); E87.1 Hypo-osmolality and hyponatremia; B96.5 Pseudomonas (aeruginosa) (mallei) (pseudomallei) as the cause of diseases classified elsewhere; M65.861 Other synovitis and tenosynovitis, right lower leg; M10.9 Gout, unspecified; N18.3 Chronic kidney disease, stage 3 (moderate); K21.9 Gastro-esophageal reflux disease without esophagitis; Z96.653 Presence of artificial knee joint, bilateral; Z96.643 Presence of artificial hip joint, bilateral; Z96.612 Presence of left artificial shoulder joint; L97.519 Non-pressure chronic ulcer of other part of right foot with unspecified severity; M60.871 Other myositis, right ankle and foot; G62.9 Polyneuropathy, unspecified; Z85.46 Personal history of malignant neoplasm of prostate; Z87.891 Personal history of nicotine dependence; Z80.3 Family history of malignant neoplasm of breast; Z80.42 Family history of malignant neoplasm of prostate
CPT/HCPCS: 36415; 70030; 80048; 80053; 80202; 82607; 82746; 83036; 83735; 85025; 85379; 85652; 86140; 87040; 87070; 87077; 87186; 87205; 87640; 87641; 99284; A9270-GY; J0692; J1644; J1650; J2543; J3370

== ENCOUNTER 2019-12-31 10:03 | Day surgery (SDC) | payer MEDICARE, BC ==
[~2019-12-31 10:03] MED LIST: Acetaminophen TAB* 325 MG PO ONE; Buffered Lidocaine 1% SYRIN* 1 ML/SYRINGE INTRADERM ONE; Famotidine IV* 10 MG/ML 2 ML (20 mg) IV ONE; Famotidine IV* 10 MG/ML 2 ML (20 mg) ONE; Lactated Ringers 1000 ML Bag* 1,000 ML IV SCH; ceFAZolin 2 GM PREMIX in ORs 2 GM/50 ML BAG ONE
[2019-12-31] MEDS ORDERED: Famotidine IV* 10 MG/ML 2 ML (20 mg) ONE (10:40)
[2019-12-31] MEDS ORDERED: ceFAZolin 2 GM PREMIX in ORs 2 GM/50 ML BAG ONE (10:40)
[2019-12-31] MEDS ORDERED: Acetaminophen TAB* 325 MG ONE (10:40)
[2019-12-31] MEDS ORDERED: Buffered Lidocaine 1% SYRIN* 1 ML/SYRINGE INTRADERM ONE (10:40)
[2019-12-31] MEDS ORDERED: Midazolam* 1 MG/ML 2 ML VIAL (2 MG) ONE (11:06)
[2019-12-31] MEDS ORDERED: fentaNYL* 50 MCG/ML 2 ML VIAL (100 MCG VIAL) ONE (11:06)
[2019-12-31] MEDS ORDERED: Bupivacaine 0.5%* 50 ML MDV VIAL ONE (11:19)
[2019-12-31] MEDS ORDERED: Bupivacaine 0.25% SDV PF* 10 ML VIAL INJ ONE (11:19)
[2019-12-31] MEDS ORDERED: Lidocaine 2% PF * 5 ML VIAL ONE (11:50)
[2019-12-31] MEDS ORDERED: Propofol* 10 MG/ML 20 ML BTL ONE (11:53)
[2019-12-31] MEDS ORDERED: Ondansetron INJ* 2 MG/ML VIAL ONE (11:53)
[2019-12-31] MEDS ORDERED: Ketorolac INJ* 30 MG/ML 1 ML VIAL ONE (11:55)
[2019-12-31] MEDS ORDERED: Ondansetron INJ* 2 MG/ML VIAL IV PRN (12:01)
[2019-12-31] MEDS ORDERED: DiMENhydriNATE IV* 50 MG/ML VIAL IV PUSH PRN (12:01)
[2019-12-31] MEDS ORDERED: Naloxone* 0.4 MG/ML 1 ML VIAL IV PRN (12:01)
[2019-12-31] MEDS ORDERED: fentaNYL* 50 MCG/ML 2 ML VIAL (100 MCG VIAL) IV PRN (12:01)
[2019-12-31] MEDS ORDERED: HYDROcodone/ACETAMIN 5-325 MG* 1 TAB PO PRN (12:01)
--- NOTE | 2019-12-31 13:22 | OP ---
Operative Report - Blank - Operative Report Date of Operation: 12/31/19 Note: PATIENT: Jono Trinidad DATE OF : 1935 DATE OF SURGERY: 12/31/2019 SURGEON: Bartolome Saleem MD DATA SME: CHARO Haas, whos assistance was necessary for positioning, retraction, help with instrumentation, and closure. ANESTHESIOLOGIST: Dr. 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 OPERATION: 1. Right fifth metatarsal head excision 2. Right gastrocnemius recession ANESTHESIA: General IMPLANTS: none TOURNIQUET TIME: Less than 1 hour with an ankle Esmarch tourniquet SPECIMENS: 5th metatarsal head to pathology ESTIMATED BLOOD LOSS: minimal COMPLICATIONS: none STATUS: Stable from the operating room to the recovery room and then home. INDICATIONS FOR PROCEDURE: Jono has had a persistent right plantar lateral forefoot ulcer despite extensive non-op treatment. Both operative and non-operative treatment alternatives were reviewed. Further, the nature and risks of surgery were reviewed in careful detail. Our discussions regarding the risks of surgery included, but were not limited to, infection, wound problems, nerve injury, neuroma, RSD, persistent symptoms, blood clot, need for further surgery, failure of the surgery, and even the remote chance of catastrophic complication. DESCRIPTION OF PROCEDURE: The patient was seen in the preoperative holding unit and informed written consent was obtained. The appropriate extremity was marked. The patient was then brought to the operating room and carefully positioned on the operating room table. Anesthesia was induced. All bony prominences were padded with great care. A well-padded thigh tourniquet was placed. A chlorhexidine based pre- scrub was performed followed by a chloraprep prep and drape in standard sterile fashion. A surgical safety pause was then conducted in which we confirmed the appropriate patient, extremity, planned procedure, availability of equipment, indication and administration of prophylactic antibiotics, and DVT prophylaxis in the form of a compression boot on the non-surgical extremity. I began with an Esmarch exsanguination of the limb and placement of an ankle Esmarch tourniquet. I made a dorsolateral longitudinal incision on the foot. I sharply dissected down to the fifth metatarsal. I then used an oscillating saw to osteotomize the fifth metatarsal neck. This was beveled so that there would be no sharp edges either laterally or plantarly. The fifth metatarsal head was then excised sharply from the surrounding soft tissue. I used a rongeur to smooth out the cut edges. The wound was then copiously irrigated with sterile saline. There was no grossly infected or necrotic tissue present. The fifth metatarsal head was sent to pathology. Hemostasis was obtained. The wound was then copiously irrigated and meticulously closed in layers utilizing 3-0 Monocryl for the dermal layer and 3-0 nylon for the skin. I then made an approximately 3-cm incision at the posteromedial calf. I carried the dissection through the soft tissue and divided the crural fascia longitudinally. I then exposed the fascia of the gastrocnemius muscle. Great care was taken to protect the sural nerve throughout this procedure. I cleared all adhesions from the posterior aspect of the gastrocnemius fascia and then transected this in its entirety from medially to laterally. I then identified the plantaris tendon, which was also tight medially. This was transected. These procedures had the effect of improving the ankle dorsiflexion to approximately 10 degrees. I then again confirmed that the sural nerve was in continuity. We irrigated copiously. We then used #3-0 Monocryl for the subdermal layer and 3-0 nylon for the skin. A sterile dressing was then applied. The patient was then awakened from anesthesia and transferred to the recovery room in stable condition. There were no complications. All needle and sponge counts were correct at the end of the case. ATTESTATION: I attest I was present and scrubbed and performed the critical portions of the procedure myself. POSTOPERATIVE PLAN: The plan is for heel weightbearing and follow up in 2 weeks for likely suture removal.
[2019-12-31 13:41] VITALS: BP 166/66
== END 2019-12-31 13:55 | disposition home or self-care (01) ==
LOC: OR 10:03
PROVIDERS: ATTEND Orthopaedic Surgery
DX: L97.519 Non-pressure chronic ulcer of other part of right foot with unspecified severity (principal); M62.471 Contracture of muscle, right ankle and foot; G62.9 Polyneuropathy, unspecified; M10.9 Gout, unspecified; M19.90 Unspecified osteoarthritis, unspecified site; K21.9 Gastro-esophageal reflux disease without esophagitis; Z85.46 Personal history of malignant neoplasm of prostate; N18.9 Chronic kidney disease, unspecified; Z96.653 Presence of artificial knee joint, bilateral; Z96.643 Presence of artificial hip joint, bilateral; Z96.612 Presence of left artificial shoulder joint; Z87.891 Personal history of nicotine dependence
CPT/HCPCS: 88304; 88311; A9270-GY; J0690; J1885; J2250; J2405; J2704; J3010; J3490